=== PATIENT | male | born 1980 | race Caucasian/White ===

== ENCOUNTER 2017-08-07 18:11 | Emergency (ER) | payer OTHER ==
[~2017-08-07] VITALS: Ht 160 cm; Wt 108.9 kg
[~2017-08-07 18:11] MED LIST: BENZ100C PO; OSEL75CA PO; PRED50TA PO; PROAIR HFA8.5 GM INH; VENTOLIN HFA18 GM INH
[2017-08-07] MEDS ORDERED: PRED20TA PO (18:58)
[2017-08-07] MEDS ORDERED: DOXY100C2 PO (18:58)
--- NOTE | 2017-08-07 18:59 | PHYS DOC ---
Past Medical History Past Medical History: Asthma, Hypertension Past Surgical History: Appendectomy Alcohol Use: None Drug Use: None Adult General Chief Complaint Chief Complaint: EARACHE/EAR PAIN [place] [employer] HPI Patient is a 37 year old male presents to emergency department stating that he' s been having upper nasal congestion and headache congestion for the last 3 days. He states that he has been taken [id number] sinus medication with no relief. Patient states that his ears feel clogged he feels as though he has congestion throughout his head. He states that he feels slightly off balance due to the congestion. He denies any shortness of air difficulty breathing. He does state he has a nonproductive cough. Review of Systems Review of Systems Constitutional: Denies fever or chills [] Eyes: Denies change in visual acuity, redness, or eye pain [] HENT: nasal congestion and sore throat [] Respiratory: cough denies shortness of breath [] Cardiovascular: No additional information not addressed in HPI [] GI: Denies abdominal pain, nausea, vomiting, bloody stools or diarrhea [] : Denies dysuria or hematuria [] Musculoskeletal: Denies back pain or joint pain [] Integument: Denies rash or skin lesions [] Neurologic: Denies headache, focal weakness or sensory changes [] Endocrine: Denies polyuria or polydipsia [] Allergies Allergies Allergies Coded Allergies Type Severity Reaction Last Updated Verified No Known Drug Allergies 01/07/15 No Physical Exam Physical Exam Constitutional: Well developed, well nourished, no acute distress, non-toxic appearance. [] HENT: Normocephalic, atraumatic, bilateral external ears normal, oropharynx moist, no oral exudates, nose normal. Bilateral tympanic membranes appear to be normal. Patient with frontal sinus tenderness noted. No maxillary sinus tenderness noted. Throat with postnasal drip that yellowish in color. Redness noted in the throat no exudate or erythematous noted. No anterior cervical adenopathy noted. Eyes: PERRLA, EOMI, conjunctiva normal, no discharge. [] Neck: Normal range of motion, no tenderness, supple, no stridor. [] Cardiovascular:Heart rate regular rhythm, no murmur [] Lungs & Thorax: Bilateral breath sounds clear to auscultation [] Skin: Warm, dry, no erythema, no rash. [] Back: No tenderness Extremities: No tenderness, no cyanosis, no clubbing, ROM intact, no edema. [] Neurologic: Alert and oriented X 3, normal motor function, normal sensory function, no focal deficits noted. [] Psychologic: Affect normal, judgement normal, mood normal. [] Current Patient Data Vital Signs Vital Signs Date Time Temp Pulse Resp B/P (MAP) Pulse Ox O2 Delivery O2 Flow Rate FiO2 08/07/17 18:35 98.0 83 20 162/94 (116) 99 Room Air 98.0 EKG EKG [] Radiology/Procedures Radiology/Procedures [] Course & Med Decision Making Course & Med Decision Making Pertinent Labs and Imaging studies reviewed. (See chart for details) Patient will be discharged home with a prescription for doxycycline as well as prednisone. Recommended Sudafed and Mucinex DM [id number] instructed by kitchen hand. Recommended patient drink plenty of fluids use Tylenol or ibuprofen for pain and discomfort. Patient will be provided with a 3 day work note. Patient will be discharged home in stable condition signs symptoms to return back to emergency department as been provided. All questions and concerns been answered at patient's bedside. Patient agrees with discharge instructions treatment regimens and follow-up recommendations. [] Dragon Disclaimer Dragon Disclaimer This electronic medical record was generated, in whole or in part, using a voice recognition dictation system. Departure Departure Impression: Primary Impression: Upper respiratory infection Disposition: 01 HOME, SELF-CARE Condition: STABLE Referrals: UNKNOWN PCP NAME (PCP) Patient Instructions: Upper Respiratory Infection, Adult, [id number] Additional Instructions: Activity as tolerated. Medication as prescribed. Ibuprofen or Tylenol for pain and discomfort. Sudafed and Mucinex DM as instructed by kitchen hand [id number]. Drink plenty of fluids. Follow-up primary care physician in the next 3-5 days. Return back to emergency prior signs symptoms of become worse. Scripts Prednisone (PREDNISONE) 20 Mg Tablet 40 MG PO DAILY for 7 Days, #14 TAB Prov: FELA PARIKH DESTINATION SIGN REPAIRER 08/07/17 Doxycycline Hyclate (DOXYCYCLINE HYCLATE) 100 Mg Capsule 1 CAP PO BID, #20 CAP Prov: FELA PARIKH DESTINATION SIGN REPAIRER 08/07/17 FELA PARIKH DESTINATION SIGN REPAIRER Aug 07, 2017 18:59
[2017-08-07 19:13] VITALS: BP 148/79
== END 2017-08-07 19:13 | disposition home or self-care (01) ==
LOC: ER 18:11
DX: J06.9 Acute upper respiratory infection, unspecified (principal); R51 Headache; H93.93 Unspecified disorder of ear, bilateral; J45.909 Unspecified asthma, uncomplicated; I10 Essential (primary) hypertension
CPT/HCPCS: 99283

== ENCOUNTER 2018-06-01 22:05 | Emergency (ER) | payer OTHER | END 2018-06-01 23:26 | disposition home or self-care (01) | LOC: ER 23:26 | DX: M54.5 Low back pain (principal); J45.909 Unspecified asthma, uncomplicated; I10 Essential (primary) hypertension; Z90.49 Acquired absence of other specified parts of digestive tract | CPT/HCPCS: 99283 ==

== ENCOUNTER 2018-11-19 11:32 | Emergency (ER) | payer OTHER ==
[~2018-11-19] VITALS: Ht 160 cm; Wt 113.4 kg
[~2018-11-19 11:32] MED LIST changes: +ALBU2.5V8 INH; +CYCL5TAB PO; +DOXY100C2 PO; +PRED20TA PO; -PROAIR HFA8.5 GM INH
[2018-11-19 11:52] VITALS: BP 101/53
--- NOTE | 2018-11-19 12:36 | PHYS DOC ---
Past Medical History Past Medical History: Asthma, Hypertension Past Surgical History: Appendectomy Alcohol Use: Occasionally Drug Use: None Adult General Chief Complaint Chief Complaint: FLU SYMPTOM HPI HPI Patient is a 38 year old male who presents to the ER with complaints of a runny nose, cough, fever up to 102, body aches, and fatigue since yesterday. Pt states that he was not immunized against the flu this season. He denies any known exposure to influenza. Pt denies any abdominal pain, diarrhea, or ear pain. States that he has coughed so hard that he's vomited a few times. Review of Systems Review of Systems Constitutional:See HPI Eyes: Denies change in visual acuity, redness, or eye pain [] HENT: Denies nasal congestion or sore throat [] Respiratory: Denies wheezing or shortness of breath; see HPi Cardiovascular: No additional information not addressed in HPI [] GI: Denies abdominal pain or diarrhea [] Musculoskeletal: Denies back pain or joint pain [] Integument: Denies rash or skin lesions [] Neurologic: Denies headache, focal weakness or sensory changes [] All other systems were reviewed and found to be within normal limits, except as documented in this note. Allergies Allergies Allergies Coded Allergies Type Severity Reaction Last Updated Verified No Known Drug Allergies 01/07/15 No Physical Exam Physical Exam Constitutional: Well developed, well nourished, no acute distress, ill appearance. [] HENT: Normocephalic, atraumatic, bilateral external ears normal, bilateral TMs normal, posterior pharynx normal, oropharynx moist, no oral exudates, nose normal. [] Eyes: conjunctiva injected, no discharge. [] Neck: Normal range of motion, no tenderness, supple, no stridor. [] Cardiovascular:Heart rate regular rhythm, no murmur [] Lungs & Thorax: Bilateral breath sounds clear to auscultation [] Skin: Hot, flushed, dry, no rash. [] Extremities: No cyanosis, no clubbing, ROM intact, no edema. [] Neurologic: Alert and oriented X 3, normal motor function, normal sensory function, no focal deficits noted. [] Psychologic: Affect normal, judgement normal, mood normal. [] Current Patient Data Vital Signs Vital Signs Date Time Temp Pulse Resp B/P (MAP) Pulse Ox O2 Delivery O2 Flow Rate FiO2 11/19/18 11:52 102.1 102 20 101/53 (69) 96 Room Air 102.1 EKG EKG [] Radiology/Procedures Radiology/Procedures influenza A positive influenza B negative[] Course & Med Decision Making Course & Med Decision Making Pertinent Labs and Imaging studies reviewed. (See chart for details) [] Dragon Disclaimer Dragon Disclaimer This electronic medical record was generated, in whole or in part, using a voice recognition dictation system. Departure Departure Impression: Primary Impression: Influenza A Disposition: HOME, SELF-CARE Condition: STABLE Referrals: NO PCP (PCP) Patient Instructions: Influenza A (H1N1) Additional Instructions: Fill prescription(s) and use as directed. Tylenol or ibuprofen prn pain/fever. Increase clear fluids. Avoid triggers such as smoke, fragrance, dust, and pollen. May take OTC cough suppressants as needed. Follow-up with your primary care doctor as needed, return to the ER symptoms worsen Scripts Oseltamivir Phosphate (TAMIFLU) 75 Mg Capsule 1 CAP PO BID for 5 Days, #10 CAP Prov: XIMENA WATERS APRN 11/19/18 XIMENA WATERS INFORMATION BROKER Nov 19, 2018 12:35
[2018-11-19 12:38] LABS: INFLUENZA A PATIENT POSITIVE (NEGATIVE); INFLUENZA B PATIENT NEGATIVE (NEGATIVE)
[2018-11-19] MEDS ORDERED: OSEL75CA PO (12:40)
== END 2018-11-19 12:55 | disposition home or self-care (01) ==
LOC: ER 11:32
DX: J09.X2 Influenza due to identified novel influenza A virus with other respiratory manifestations (principal); J45.909 Unspecified asthma, uncomplicated; I10 Essential (primary) hypertension; Z90.89 Acquired absence of other organs
CPT/HCPCS: 87804; 99283

== ENCOUNTER 2018-11-22 21:59 | Emergency (ER) | payer OTHER ==
[~2018-11-22] VITALS: Ht 160 cm; Wt 136.1 kg
[2018-11-22 22:00] VITALS: BP 173/78
[2018-11-22] MEDS ORDERED: predniSONE 20 MG TABLET PO ONE (23:00)
[2018-11-22] MEDS ORDERED: ACETAMINOPHEN 500 MG TABLET PO ONE (23:00)
[2018-11-22] MEDS ORDERED: IPRATRPIUM/ALBUTEROL 0.5/2.5MG 3 ML NEBU. NEB ONE (23:00)
[2018-11-22] MEDS ORDERED: PRED50TA PO (23:50)
[2018-11-22] MEDS ORDERED: BENZ100C PO (23:50)
[2018-11-22] MEDS ORDERED: VENTOLIN HFA18 GM INH (23:50)
--- NOTE | 2018-11-22 23:50 | PHYS DOC ---
Past Medical History Past Medical History: Asthma, High Cholesterol, Hypertension Past Surgical History: Appendectomy Alcohol Use: Occasionally Drug Use: None Adult General Chief Complaint Chief Complaint: Congestion HPI HPI Patient is a 38 year old male with history of asthma, hypertension, high cholesterol, who presents today complaining of cough and shortness of breath for the last 3 days that got worse today. Patient states he was seen in the ED 3 days ago and was diagnosed with influenza A and put on Tamiflu. Patient states he has an inhaler in his vehicle but could not walk to his car from his house because this too far for him. He states he decided to come to the ED to be evaluated. Patient states he has had a fever since he was diagnosed with influenza. He states he takes Tylenol and Motrin but does not remember the last time he took either of them. He is requesting a breathing treatment. Review of Systems Review of Systems Constitutional:reports fever Eyes: Denies change in visual acuity, redness, or eye pain [] HENT: Denies nasal congestion or sore throat [] Respiratory: Reports cough and shortness of breath [] Cardiovascular: No additional information not addressed in HPI [] GI: Denies abdominal pain, nausea, vomiting, bloody stools or diarrhea [] : Denies dysuria or hematuria [] Musculoskeletal: Denies back pain or joint pain [] Integument: Denies rash or skin lesions [] Neurologic: Denies headache, focal weakness or sensory changes [] All other systems were reviewed and found to be within normal limits, except as documented in this note. Current Medications Current Medications Current Medications Medications (Trade) Dose Ordered Sig/[facility] Start Time Stop Time Status Last Admin Dose Admin Acetaminophen (Tylenol) 1,000 mg 1X ONCE 11/22/18 23:00 11/22/18 23:01 DC 11/22/18 22:58 1,000 MG Albuterol/ Ipratropium (Duoneb) 3 ml 1X ONCE 11/22/18 23:00 11/22/18 23:01 DC 11/22/18 22:45 3 ML Prednisone (Prednisone) 50 mg 1X ONCE 11/22/18 23:00 11/22/18 23:01 DC 11/22/18 22:58 50 MG Allergies Allergies Allergies Coded Allergies Type Severity Reaction Last Updated Verified No Known Drug Allergies 01/07/15 No Physical Exam Physical Exam Constitutional: Well developed, well nourished, no acute distress, non-toxic appearance. [] HENT: Normocephalic, atraumatic, bilateral external ears normal, oropharynx moist, no oral exudates, nose normal. [] Eyes: PERRLA, EOMI, conjunctiva normal, no discharge. [] Neck: Normal range of motion, no tenderness, supple, no stridor. [] Cardiovascular:Heart rate regular rhythm, no murmur [] Lungs & Thorax: Slightly diminished breath sounds to posterior lung bases. Abdomen: Bowel sounds normal, soft, no tenderness, no masses, no pulsatile masses. [] Skin: Warm, dry, no erythema, no rash. [] Back: No tenderness, no CVA tenderness. [] Extremities: No tenderness, no cyanosis, no clubbing, ROM intact, no edema. [] Neurologic: Alert and oriented X 3, normal motor function, normal sensory function, no focal deficits noted. [] Psychologic: Affect normal, judgement normal, mood normal. [] Current Patient Data Vital Signs Vital Signs Date Time Temp Pulse Resp B/P (MAP) Pulse Ox O2 Delivery O2 Flow Rate FiO2 11/22/18 22:49 100 Room Air 11/22/18 22:00 103.0 127 26 173/78 (109) 103.0 EKG EKG [] Radiology/Procedures Radiology/Procedures [] Course & Med Decision Making Course & Med Decision Making Pertinent Labs and Imaging studies reviewed. (See chart for details) This is a 38 year old male with history of asthma presenting today complaining of shortness of breath. Patient was diagnosed with influenza A, 3 days ago, currently on Tamiflu. Has had fever since then. Has an inhaler in his vehicle but decided to come to the ED to be evaluated because it was to far of a walk for for him to to to his car and get the inhaler. Patient is in no distress on arrival to the ED, he has a temperature of 103. He does not remember the last time he took his Tylenol or Motrin. He was given Tylenol 1 g in the ED. Given a DuoNeb treatment and prednisone. Lungs have cleared up and he states he is feeling better. Chest x-ray interpreted by Dr. Borges is negative for any acute findings. Patient was discharged with prednisone for 4 more days and albuterol inhaler. Encouraged to take Tylenol every 4 hours and Motrin every 6 hours. Encouraged to rest and push fluids. Encouraged to follow-up with his own PCP on Sunday. Instructed to return to the ED at any point symptoms worsen Sandra Disclaimer Sandra Disclaimer This electronic medical record was generated, in whole or in part, using a voice recognition dictation system. Departure Departure Impression: Primary Impression: Influenza A Additional Impressions: Cough Asthma exacerbation Disposition: HOME, SELF-CARE Condition: STABLE Referrals: NO PCP (PCP) Follow up with your doctor next week Patient Instructions: Asthma, Adult, Kbbs-[id number], Cough, Adult, Prdp-md-Gndb, Fever, Adult, Influenza A (H1N1) Additional Instructions: You were evaluated in the emergency room. You have influenza A. Please take Tylenol every 4 hours and Motrin every 6 hours. Rest, push fluids. Use breathing treatments as needed. Complete your prednisone. Follow up with your doctor in the course of next week. Scripts Benzonatate (TESSALON PERLE) 100 Mg Capsule 1 CAP PO TID, #30 CAP Prov: CLAUDINE ARBOLEDA APRN 11/22/18 Albuterol Sulfate (VENTOLIN HFA INHALER) 18 Gm Hfa.aer.ad 2 PUFF INH Q4HRS for FOR ASTHMA, #1 INHALER 0 Refills Prov: CLAUDIEN ARBOLEDA APRN 11/22/18 Prednisone (PREDNISONE) 50 Mg Tablet 1 TAB PO DAILY, #4 TAB Prov: CLAUDINE ARBOLEDA APRN 11/22/18 Problem Qualifiers Additional Impressions: Asthma exacerbation Asthma severity: mild Asthma persistence: intermittent Qualified Codes: J45.21 - Mild intermittent asthma with (acute) exacerbation CLAUDINE ARBOLEDA APRN Nov 22, 2018 23:50
--- NOTE | 2018-11-22 23:51 | RAD ---
CHEST PA LATERAL History: Flu like symptoms x a week Comparison: Two-view chest November 24, 2016. Findings: The cardiomediastinal silhouette is normal. Pulmonary vasculature is normal. The lungs are clear. No pleural effusion or pneumothorax is seen. There is no acute bone abnormality. There is a thin linear metallic density along the anterior neck. IMPRESSION: No acute cardiopulmonary process. Electronically signed by: Davy Will MD (11/22/2018 11:47 PM) [facility]
== END 2018-11-22 23:50 | disposition home or self-care (01) ==
LOC: ER 21:59
DX: J09.X2 Influenza due to identified novel influenza A virus with other respiratory manifestations (principal); J45.21 Mild intermittent asthma with (acute) exacerbation; E78.00 Pure hypercholesterolemia, unspecified; I10 Essential (primary) hypertension
CPT/HCPCS: 71046; 94640; 99283; J7512; J7620

== ENCOUNTER 2020-06-19 10:09 | Emergency (ER) | payer OTHER ==
[~2020-06-19] VITALS: Ht 160 cm; Wt 95.0 kg
--- NOTE | 2020-06-19 10:57 | RAD ---
AP chest. HISTORY: Cough, short of air AP view was taken of the chest. Lungs are clear. Heart is normal in size. There is no pleural effusion. IMPRESSION: 1. No acute chest disease. Electronically signed by: Davonte Cassidy MD (06/19/2020 10:54 AM) [facility]
[2020-06-19] MEDS ORDERED: ALBU2.5V8 IH (11:43)
[2020-06-19] MEDS ORDERED: AZIT250T PO (11:43)
[2020-06-19] MEDS ORDERED: PRED20TA PO (11:43)
--- NOTE | 2020-06-19 11:43 | PHYS DOC ---
Past Medical History Past Medical History: Asthma, High Cholesterol, Hypertension Past Surgical History: Appendectomy Smoking Status: Former Smoker Alcohol Use: Occasionally Drug Use: None General Adult EDM: Chief Complaint: SHORTNESS OF BREATH HPI: HPI: Patient is a 40 year old male who presented to ER today for evaluation of 2-day history of productive cough with yellow sputum, sore throat. Patient denies any fever, no trouble breathing, no chest pain, no abdominal pain, no nausea vomiting. Patient also complained of headache. Patient denies being exposed to anybody who tested positive for COVID-19. Patient has history of asthma Patient was evaluated by this physician who worn full PPE included N95 MASK, FACE SHIELD, GLOVE, GOWN. Review of Systems: Review of Systems: Constitutional: Denies fever or chills. [] Eyes: Denies change in visual acuity. [] HENT: Positive for nasal congestion or sore throat. [] Respiratory: Positive for cough or shortness of breath. [] Cardiovascular: no chest pain or edema. [] GI: Denies abdominal pain, nausea, vomiting, bloody stools or diarrhea. [] : Denies dysuria. [] Musculoskeletal: Denies back pain or joint pain. [] Integument: Denies rash. [] Neurologic: Denies headache, focal weakness or sensory changes. [] Endocrine: Denies polyuria or polydipsia. [] Lymphatic: Denies swollen glands. [] Psychiatric: Denies depression or anxiety. [] Heart Score: Risk Factors: Risk Factors: DM, Current or recent (<one month) smoker, HTN, HLP, family history of CAD, obesity. Risk Scores: Score 0 - 3: 2.5% MACE over next 6 weeks - Discharge Home Score 4 - 6: 20.3% MACE over next 6 weeks - Admit for Clinical Observation Score 7 - 10: 72.7% MACE over next 6 weeks - Early Invasive Strategies Allergies: Allergies: Allergies Coded Allergies Type Severity Reaction Last Updated Verified No Known Drug Allergies 01/07/15 No Physical Exam: PE: Constitutional: Well developed, well nourished, no acute distress, non-toxic appearance. [] HENT: Normocephalic, atraumatic, bilateral external ears normal, oropharynx moist, no oral exudates, nose normal. [] Eyes: PERRLA, EOMI, conjunctiva normal, no discharge. [] Neck: Normal range of motion, no tenderness, supple, no stridor. [] Cardiovascular:Heart rate regular rhythm, no murmur [] Lungs & Thorax: Bilateral breath sounds clear to auscultation [] Abdomen: Bowel sounds normal, soft, no tenderness, no masses, no pulsatile masses. [] Skin: Warm, dry, no erythema, no rash. [] Back: No tenderness, no CVA tenderness. [] Extremities: No tenderness, no cyanosis, no clubbing, ROM intact, no edema. [] Neurologic: Alert and oriented X 3, normal motor function, normal sensory function, no focal deficits noted. [] Psychologic: Affect normal, judgement normal, mood normal. [] Current Patient Data: Vital Signs: Vital Signs Date Time Temp Pulse Resp B/P (MAP) Pulse Ox O2 Delivery O2 Flow Rate FiO2 06/19/20 10:29 98.1 90 18 134/67 (89) 96 Room Air 98.1 EKG: EKG: [] Radiology/Procedures: Radiology/Procedures: [][facility] [address] [place] [address] IMAGING REPORT Signed PATIENT: FRANCINE SPENCER ACCOUNT: [id number] : 1980 LOCATION: ER AGE: 40 SEX: M EXAM STATUS: REG ER ORD. PHYSICIAN: ROBERT MONTE DO REASON: COUGH, SOA PROCEDURE: CHEST AP ONLY AP chest. HISTORY: Cough, short of air AP view was taken of the chest. Lungs are clear. Heart is normal in size. There is no pleural effusion. IMPRESSION: 1. No acute chest disease. Electronically signed by: Davonte Vasquez MD (06/19/2020 10:54 AM) [facility] DICTATED and SIGNED BY: DAVONTE VASQUEZ MD DATE: 06/19/20 1054 Course & Med Decision Making: Course & Med Decision Making COVID-19 CRITERIA: The patient was evaluated during the global COVID-19 pandemic, and that diagnosis was suspected/considered upon their initial presentation. Their evaluation, treatment and testing was consistent with current guidelines for patients who present with complaints or symptoms that may be related to COVID-19. Pertinent Labs and Imaging studies reviewed. (See chart for details) Patient is a 40-year-old male who was evaluated in the ER due to cough, sore throat, trouble breathing. Patient has history of asthma, suspecting COVID-19 INFECTION, COVID TEST is pending at this time. Patient is stable, in no acute distress, vital signs are normal. We will discharge him home. Dragon Disclaimer: Dragon Disclaimer: This electronic medical record was generated, in whole or in part, using a voice recognition dictation system. Departure Departure Impression: Primary Impression: Acute bronchitis Additional Impression: Suspected 2019 novel coronavirus infection Disposition: HOME, SELF-CARE Condition: STABLE Referrals: NO PCP (PCP) PLEASE FOLLOW UP WITH YOUR DOCTOR FOR REEVALUATION NEEDED Patient Instructions: Acute Bronchitis Additional Instructions: You have been tested for or diagnosed with COVID-19. It is an infection caused by a new type of coronavirus. COVID-19 will cause cold-like or mild flu symptoms in most. It can cause more severe symptoms like problems breathing in some. There is no treatment for COVID-19. The body will clear the infection over time. Self-care will help to ease discomfort. Steps to Take: Self-Care Rest as needed. Healthy habits may help you feel better. Steps include: Choose healthy foods including fruits and vegetables. Drink water throughout the day. Get plenty of sleep each night. If you smoke, try to quit. It may ease breathing. Avoid alcohol. Keep Others Healthy The virus can spread to others. Droplets are released every time you sneeze or cough. The droplets can get into the mouth, nose, or eyes of people near you and lead to infection. To lower the chances of spreading COVID-19 to others: Stay at home until your doctor has said it is safe to leave. If you tested positive this will mean staying isolated until both of the following are true: At least 7 days have passed since the start of illness. You are free of fever for at least 72 hours without the use of medicine. During this time: - Avoid public areas, events, or transportation. Do not return to work or school until your doctor has said it is safe to do so. - Call ahead if you need to go to a medical center. Let them know you may have COVID-19. It will help them guide you where to go. They may also ask you to wear a facemask when you come to the office. - If you call for emergency medical services, let them know you may have COVID- 19. While at home: - Try to avoid close contact with others. Stay about 6 feet away. - If possible, spend most of your time in a separate room from others. - Use a face mask if you will be in close contact with others such as sharing a room or vehicle. - Have someone wipe down common surfaces in the home. Use household missile inspector preflight every day on areas like doorknobs, counters, or sinks. - Cough or sneeze into a tissue. Throw the tissue away right after use. If a tissue is not available, cough or sneeze into your elbow. - Wash your hands often. Wash them after sneezing or coughing. Use soap and water and wash for at least 20 seconds. Alcohol based hand night cleaner can be used if soap and water is not available. - Do not prepare food for others. Avoid sharing personal items like forks, spoons, or toothbrushes. - Avoid close contact with pets while you are sick. There is no evidence of the virus passing to pets. This is a safety step until more is known about this virus. Isolation can be frustrating. Social interaction can help. Keep in touch with friends and family through phone and tech options. You can still interact with others in your home, just keep a safe distance of about 6 feet. Follow-up: Your doctors office will check in with you to see if there are any changes in your health. You may be asked to keep track of symptoms to share with them. They will also let you know when you are clear to be in public again. Problems to Look Out For: Contact your doctor if your recovery is not going as you expect. Get emergency care if you have problems such as: - Trouble breathing - Nonstop chest pain or pressure - Changes in awareness, confusion, or problems waking - Lips or face have bluish color - Worsening of symptoms If you think you have an emergency, call for emergency medical services right away. As taken from [facility] Scripts Albuterol Sulfate (PROAIR HFA INHALER) 8.5 Gm Hfa.aer.ad 2 PUFF IH PRN Q4-6HRS PRN for wheezing for 21 Days, #1 INHALER 0 Refills Prov: ROBERT MONTE DO 06/19/20 Prednisone (PREDNISONE) 20 Mg Tablet 1 TAB PO DAILY, #10 TAB Prov: ROBERT MONTE DO 06/19/20 Azithromycin (ZITHROMAX) 250 Mg Tablet 1 PKG PO UD, #6 TAB Prov: ROBERT MONTE DO 06/19/20 Justicifation of Admission Dx: Justifications for Admission: Justification of Admission Dx: N/A ROBERT MONTE DO Jun 19, 2020 11:43
[2020-06-19 12:22] VITALS: BP 159/85
== END 2020-06-19 12:30 | disposition home or self-care (01) ==
LOC: ER 10:09
DX: J20.9 Acute bronchitis, unspecified (principal); Z20.828 Contact with and (suspected) exposure to other viral communicable diseases; R06.02 Shortness of breath; R05 Cough; J45.909 Unspecified asthma, uncomplicated; E78.00 Pure hypercholesterolemia, unspecified; I10 Essential (primary) hypertension; Z90.89 Acquired absence of other organs; Z87.891 Personal history of nicotine dependence
CPT/HCPCS: 71045; 99284; U0003

== ENCOUNTER 2020-09-07 13:12 | Emergency (ER) | payer OTHER ==
[~2020-09-07] VITALS: Ht 160 cm; Wt 122.7 kg
[~2020-09-07 13:12] MED LIST changes: +ALBU2.5V8 IH; +AZIT250T PO
[2020-09-07] MEDS ORDERED: ALBUTEROL SULFATE 2.5 MG/3 ML NEBU. NEB ONE (15:30)
[2020-09-07] MEDS ORDERED: predniSONE 10 MG TABLET PO ONE (15:30)
--- NOTE | 2020-09-07 15:51 | PHYS DOC ---
Past Medical History Past Medical History: Asthma, High Cholesterol, Hypertension Past Surgical History: Appendectomy Smoking Status: Former Smoker Alcohol Use: None Drug Use: None General Adult EDM: Chief Complaint: MULTIPLE COMPLAINTS HPI: HPI: Patient is a 40 year old male who presents with patient states for the last 2 days he has had bilateral eye discharge with irritation. He states also 2 weeks ago he has asthma and has uses inhaler once to twice a day and it started to exacerbate so he went to the doctor and they put him on prednisone. He states he took all the prednisone and finished that a week ago. He states that he feels like he is getting short of breath again and is exacerbating again. Patient is also asking for a breathing treatment at this time. He denies any chest pain, nausea, vomiting, diarrhea, back pain, headache, dizziness, syncope, focal weakness, vision changes. Patient has a history of asthma, former smoker, appendectomy, high cholesterol, hypertension. Review of Systems: Review of Systems: Constitutional: Denies fever or chills. [] Eyes: Denies change in visual acuity. +Bilateral eye redness with discharge [] HENT: Denies nasal congestion or sore throat. [] Respiratory: Denies cough. + shortness of breath. [] Cardiovascular: Denies chest pain or edema. +Chest tightness. [] GI: Denies abdominal pain, nausea, vomiting, bloody stools or diarrhea. [] : Denies dysuria. [] Musculoskeletal: Denies back pain or joint pain. [] Integument: Denies rash. [] Neurologic: Denies headache, focal weakness or sensory changes. [] Endocrine: Denies polyuria or polydipsia. [] Lymphatic: Denies swollen glands. [] Psychiatric: Denies depression or anxiety. [] Heart Score: HEART Score for Chest Pain: HEART Score for Chest Pain Response (Comments) Value History Slighlty/Non-Suspicious 0 ECG Normal 0 Age < 45 0 Risk Factors 1 or 2 Risk Factors 1 Troponin < Normal Limit 0 Total 1 Risk Factors: Risk Factors: DM, Current or recent (<one month) smoker, HTN, HLP, family history of CAD, obesity. Risk Scores: Score 0 - 3: 2.5% MACE over next 6 weeks - Discharge Home Score 4 - 6: 20.3% MACE over next 6 weeks - Admit for Clinical Observation Score 7 - 10: 72.7% MACE over next 6 weeks - Early Invasive Strategies Current Medications: Current Medications Medications (Trade) Dose Ordered Sig/Danita Start Time Stop Time Status Last Admin Dose Admin Albuterol Sulfate (Ventolin Neb Soln) 2.5 mg 1X ONCE 09/07/20 15:30 09/07/20 15:39 DC Prednisone (Prednisone) 50 mg 1X ONCE 09/07/20 15:30 09/07/20 15:39 DC Allergies: Allergies: Allergies Coded Allergies Type Severity Reaction Last Updated Verified No Known Drug Allergies 01/07/15 No Physical Exam: PE: Constitutional: Well developed, well nourished, no acute distress, non-toxic appearance. [] HENT: Normocephalic, atraumatic, bilateral external ears normal, oropharynx moist, no oral exudates, nose normal. [] Eyes: PERRLA, EOMI, conjunctiva reddened, white/ yellow discharge. [] Neck: Normal range of motion, no tenderness, supple, no stridor. [] Cardiovascular:Heart rate regular rhythm, no murmur [] Lungs & Thorax: Bilateral upper breath sounds inspiratory, expiratory wheezing and lower diminished to auscultation [] Abdomen: Bowel sounds normal, soft, no tenderness, no masses, no pulsatile masses. [] Skin: Warm, dry, no erythema, no rash. [] Back: No tenderness, no CVA tenderness. [] Extremities: No tenderness, no cyanosis, no clubbing, ROM intact, no edema. [] Neurologic: Alert and oriented X 3, normal motor function, normal sensory function, no focal deficits noted. [] Psychologic: Affect normal, judgement normal, mood normal. [] Current Patient Data: Vital Signs: Vital Signs Date Time Temp Pulse Resp B/P (MAP) Pulse Ox O2 Delivery O2 Flow Rate FiO2 09/07/20 14:35 98.6 97 20 170/77 (108) 96 Room Air 98.6 EKG: EK and read by Dr Castro as Sinus Rhythm and no STEMI[] Radiology/Procedures: Radiology/Procedures: [] Impression: [facility] [address] [place] [address] IMAGING REPORT Signed PATIENT: FRANCINE SPENCER ACCOUNT: [id number] : 1980 LOCATION: ER AGE: 40 SEX: M EXAM STATUS: REG ER ORD. PHYSICIAN: FELA RAMÍREZ APRN REASON: SOA PROCEDURE: CHEST PA & LATERAL CHEST PA LATERAL History: Shortness of air Comparison: June 19, 2020 Findings: 2 views of the chest are submitted. There is no infiltrate, pneumothorax, or effusion. Pericardial cardiac silhouette is within normal limits in size. Impression: 1. There is no radiographic evidence of acute cardiopulmonary disease. Electronically signed by: Camila Varner MD (09/07/2020 4:22 PM) [facility] DICTATED and SIGNED BY: CAMILA VARNER MD DATE: 09/07/201621 Course & Med Decision Making: Course & Med Decision Making Pertinent Labs and Imaging studies reviewed. (See chart for details) See HPI. Patient has inspiratory expiratory wheezes in upper lobes and diminished in lower lobes. Speaks in full clear sentences. 96% on room air. Ambulatory to steady gait. Bilateral sclera are pink with white discharge. Skin [place] warm and dry. No extremity edema. Blood work unremarkable. Patient states that he is breathing easier. His lungs are clear after breathing treatment. Patient states he does have a nebulizer at home that he does 3 times a day. I told him to increase that to 4 times a day since he is having exacerbation. I will put him on another round of steroid. Patient is to follow-up with his primary care provider soon as possible. We also talked about [id number] allergy medicines. EKG is sinus rhythm. Patient continues to speak in full clear sentences. He is in no respiratory distress. Patient is 96% on room air. [] Dragon Disclaimer: Dragon Disclaimer: This electronic medical record was generated, in whole or in part, using a voice recognition dictation system. Departure Departure Impression: Primary Impression: Asthma exacerbation Qualified Codes: J45.21 - Mild intermittent asthma with (acute) exacerbation Additional Impression: Conjunctivitis Qualified Codes: H10.33 - Unspecified acute conjunctivitis, bilateral Disposition: 01 DC HOME SELF CARE/HOMELESS Condition: STABLE Referrals: UNKNOWN PCP NAME (PCP) Patient Instructions: Asthma Attacks, Prevention, Asthma, Adult, Conjunctivitis (Viral and Bacterial) Additional Instructions: Follow-up with primary care provider soon as possible. Start using your nebulizer every 6 hours and use over inhaler in between for rescue. He becomes very short of breath return to the emergency room. Use medications as prescribed. Scripts Neomycin/Polymyxin B Sulf/Hc (ISYSPOGK-RPDF-SO EYE DROPS) 7.5 Ml Drops.susp 1 DROP OS QID for 5 Days, #1 BOTTLE 0 Refills Prov: BAFFELA LARA [employer] 09/07/20 Albuterol Sulfate (ALBUTEROL SULFATE NEB SOLN) 2.5 Mg/3 Ml Vial.neb 1 VIAL NEB PRN Q4HRS, #50 VIAL Prov: BAFUSESTEBANA Keyshawn [employer] 20 Albuterol Sulfate (PROAIR HFA INHALER) 8.5 Gm Hfa.aer.ad 1 PUFF INH PRN Q6HRS PRN for SHORTNESS OF BREATH, #1 INHALER 0 Refills Prov: BAFESTEBAN LARAA M [employer] 09/07/20 Methylprednisolone (MEDROL) 4 Mg Tab.ds.pk 1 PKG PO UD, #1 PKG Prov: BAFUSFELA [employer] 20 BAFESTEBAN LARAA Keyshawn [employer] Sep 07, 2020 15:51
--- NOTE | 2020-09-07 16:24 | RAD ---
CHEST PA LATERAL History: Shortness of air Comparison: June 19, 2020 Findings: 2 views of the chest are submitted. There is no infiltrate, pneumothorax, or effusion. Pericardial cardiac silhouette is within normal limits in size. Impression: 1. There is no radiographic evidence of acute cardiopulmonary disease. Electronically signed by: Deejay Lemus MD (09/07/2020 4:22 PM) [facility]
--- NOTE | 2020-09-07 16:39 | EKG ---
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
[2020-09-07 16:49] LABS: BASO # 0.1 x10^3/uL (0.0-0.2); BASO % 1 % (0-3); EOS # 0.6 x10^3/uL (0.0-0.7); EOS % 6 % (0-3); HEMATOCRIT 40.2 % (39.0-53.0); HEMOGLOBIN 13.6 g/dL (13.0-17.5); LYMPH # 2.7 x10^3/uL (1.0-4.8); LYMPH % 28 % (24-48); MEAN CORPUSCULAR HEMOGLOBIN 30 pg (25-35); MEAN CORPUSCULAR HGB CONC 34 g/dL (31-37); MEAN CORPUSCULAR VOLUME 88 fL (79-100); MONO # 0.7 x10^3/uL (0.0-1.1); MONO % 8 % (0-9); NEUT # 5.6 x10^3/uL (1.8-7.7); NEUT % 58 % (31-73); PLATELET COUNT 284 x10^3/uL (140-400); RED BLOOD COUNT 4.59 x10^6/uL (4.30-5.70); WHITE BLOOD COUNT 9.7 x10^3/uL (4.0-11.0)
[2020-09-07 17:12] LABS: CALCIUM 8.7 mg/dL (8.5-10.1); GFR 83.2; POTASSIUM 3.9 mmol/L (3.5-5.1)
[2020-09-07 17:14] LABS: ALBUMIN 3.6 g/dL (3.4-5.0); ALBUMIN/GLOBULIN RATIO 0.9 (1.0-1.7); TOTAL BILIRUBIN 0.3 mg/dL (0.2-1.0); TOTAL PROTEIN 7.4 g/dL (6.4-8.2)
[2020-09-07] MEDS ORDERED: ALBU2.5V5 NEB (17:29)
[2020-09-07] MEDS ORDERED: ALBU2.5V8 INH (17:29)
[2020-09-07] MEDS ORDERED: METH4TAB2 PO (17:29)
[2020-09-07 17:40] VITALS: BP 151/73
[2020-09-07] MEDS ORDERED: NEOM7.5D4 OS (17:41)
== END 2020-09-07 17:45 | disposition home or self-care (01) ==
LOC: ER 13:12
DX: H10.33 Unspecified acute conjunctivitis, bilateral (principal); J45.21 Mild intermittent asthma with (acute) exacerbation; E78.00 Pure hypercholesterolemia, unspecified; I10 Essential (primary) hypertension; Z87.891 Personal history of nicotine dependence
CPT/HCPCS: 36415; 71046; 80053; 84484; 85025; 85379; 93005; 94640; 99285; J7512; J7613

== ENCOUNTER 2021-05-09 16:07 | Observation (INO) | payer OTHER ==
[~2021-05-09] VITALS: Ht 160 cm; Wt 125.7 kg
[~2021-05-09 16:07] MED LIST changes: +ALBU2.5V5 NEB; +ASPI325T11 PO; +ATOR40TA59 PO; +BUDE10.2 IH; +CLOP75TA PO; +HYDR12.59 PO; +LISI-130 PO; +METH4TAB2 PO; +METO50TA6 PO; +NEOM7.5D4 OS
--- NOTE | 2021-05-09 17:06 | EKG ---
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
--- NOTE | 2021-05-09 17:54 | ED.ADGEN ---
Past Medical History Past Medical History: Asthma, High Cholesterol, Hypertension Past Surgical History: Appendectomy, Cholecystectomy Smoking Status: Never Smoker Alcohol Use: None Drug Use: None General Adult EDM: Chief Complaint: CHEST PAIN HPI: HPI: Patient is a 40-year-old male with past medical history of coronary artery disease and congestive heart failure presents to the emergency room planing of chest pain. Patient had a stent placed last . He states that he was doing well at home until earlier today. He states he was at the store when he felt this substernal chest pressure. It lasts a few minutes before going away but it keeps recurring. He has associated shortness of breath and had some nausea. He has had pain like this previously. He has been taking all his medi cations. Review of Systems: Review of Systems: Complete ROS is negative unless otherwise documented in HPI Current Medications: Current Medications Medications (Trade) Dose Ordered Sig/Danita Start Time Stop Time Status Last Admin Dose Admin Aspirin (Aspirin Chewable) 324 mg 1X ONCE 05/09/21 18:00 05/09/21 18:01 DC 05/09/21 18:14 324 MG Morphine Sulfate (Morphine Sulfate) 5 mg 1X ONCE 05/09/21 18:00 05/09/21 18:01 DC 05/09/21 18:14 5 MG Allergies: Allergies: Allergies Coded Allergies Type Severity Reaction Last Updated Verified No Known Drug Allergies 05/05/21 No Physical Exam: PE: General: Awake, alert, NAD. Well Nourished, well hydrated. Cooperative HEENT: Atraumatic, EOMI, PERRL, airway patent, moist oral mucosa Neck: Supple, trachea midline Respiratory: CTA bilaterally, normal effort, no wheezing/crackles CV: RRR, no murmur, cap refill <2 GI: Soft, nondistended, nontender, no masses MSK: No obvious deformities Skin: Warm, dry, intact Neuro: A&O x3, speech NL, sensory and motor grossly intact, no focal deficits Psych: Normal affect, normal mood, not suicidal or homicidal Current Patient Data: Labs: Laboratory Tests Test 05/09/21 18:00 White Blood Count 11.9 x10^3/uL (4.0-11.0) H Red Blood Count 4.85 x10^6/uL (4.30-5.70) Hemoglobin 14.4 g/dL (13.0-17.5) Hematocrit 42.6 % (39.0-53.0) Mean Corpuscular Volume 88 fL (79-100) Mean Corpuscular Hemoglobin 30 pg (25-35) Mean Corpuscular Hemoglobin Concent 34 g/dL (31-37) Red Cell Distribution Width 13.4 % (11.5-14.5) Platelet Count 307 x10^3/uL (140-400) Neutrophils (%) (Auto) 70 % (31-73) Lymphocytes (%) (Auto) 20 % (24-48) L Monocytes (%) (Auto) 7 % (0-9) Eosinophils (%) (Auto) 3 % (0-3) Basophils (%) (Auto) 1 % (0-3) Neutrophils # (Auto) 8.3 x10^3/uL (1.8-7.7) H Lymphocytes # (Auto) 2.3 x10^3/uL (1.0-4.8) Monocytes # (Auto) 0.8 x10^3/uL (0.0-1.1) Eosinophils # (Auto) 0.3 x10^3/uL (0.0-0.7) Basophils # (Auto) 0.1 x10^3/uL (0.0-0.2) Sodium Level 139 mmol/L (136-145) Potassium Level 4.7 mmol/L (3.5-5.1) Chloride Level 102 mmol/L (98-107) Carbon Dioxide Level 29 mmol/L (21-32) Anion Gap 8 (6-14) Blood Urea Nitrogen 21 mg/dL (8-26) Creatinine 1.2 mg/dL (0.7-1.3) Estimated GFR (Cockcroft-Gault) 67.4 Glucose Level 94 mg/dL (70-99) Calcium Level 8.9 mg/dL (8.5-10.1) Troponin I Quantitative < 0.017 ng/mL (0.000-0.055) Laboratory Tests 05/09/21 18:00 Laboratory Tests 05/09/21 18:00 Vital Signs: Vital Signs Date Time Temp Pulse Resp B/P (MAP) Pulse Ox O2 Delivery O2 Flow Rate FiO2 05/09/21 18:14 20 97 Room Air 05/09/21 16:20 98.0 85 118/52 (74) 98.0 EKG: EKG: [] Heart Score: C/O Chest Pain: Yes HEART Score for Chest Pain: HEART Score for Chest Pain Response (Comments) Value History Moderately Suspicious 1 ECG Nonspecific Repolarizatio 1 Age < 45 0 Risk Factors >3 Risk Factors or Hx CAD 2 Total 4 Risk Factors: Risk Factors: DM, Current or recent (<one month) smoker, HTN, HLP, family history of CAD, obesity. Risk Scores: Score 0 - 3: 2.5% MACE over next 6 weeks - Discharge Home Score 4 - 6: 20.3% MACE over next 6 weeks - Admit for Clinical Observation Score 7 - 10: 72.7% MACE over next 6 weeks - Early Invasive Strategies Radiology/Procedures: Radiology/Procedures: [] Impression: XR CHEST 2V History: Reason: chest pain / Spl. Instructions: / History: Comparison: May 05, 2021 Findings: No consolidation or pleural effusion. Normal heart size. No pneumothorax. Impression: 1. No acute cardiopulmonary process. Course & Med Decision Making: Course & Med Decision Making Pertinent Labs and Imaging studies reviewed. (See chart for details) Patient is a 40 year-old male who presents to the Emergency Room complaining of chest pain and associated shortness of breath and nausea. History is significant for recent stent placement. At this time, given patient's risk factors and story there is concern for possible cardiac pathology. EKG was ordered and shows chronic changes. At this time there is no signs of STEMI, pericarditis, or unstable arrthymia on EKG. Patient has received aspirin today. CBC, BMP, troponin, CXR were ordered to evaluate for causes of chest pain including ACS, anemia, electrolyte abnormalities that can lead to arrhythmias, PTX, pneumonia, pneumomediastinum. Patient does not have any abdominal tenderness that would suggest pancreaititis or cholecystitis and does not need an abdominal work up at this time. Patient's HEART score is 4 placing the patient at moderate risk. Assumed care at shift change disposition pending labs and radiologic imaging. Results reviewed. Patient without an elevated troponin. Patient states past pain has improved. Patient was admitted to the hospital last week--he underwent a cardiac cath with a stent placed in his LAD. Patient will be admitted to the hospital for serial cardiac markers. Sandra Disclaimer: Sandra Disclaimer: This electronic medical record was generated, in whole or in part, using a voice recognition dictation system. Departure Departure Impression: Primary Impression: Chest pain Disposition: ADMITTED INPATIENT Admitting Physician: ZACHARY Referrals: UNKNOWN PCP NAME (PCP) TONA RHODES MD May 09, 2021 17:54 ANANYA PERKINS DO May 09, 2021 18:26
[2021-05-09] MEDS ORDERED: ASPIRIN CHEWABLE 81 MG TABLET. PO ONE (18:00)
[2021-05-09] MEDS ORDERED: MORPHINE SULFATE 10 MG/ML VIAL. IV ONE (18:00)
--- NOTE | 2021-05-09 18:06 | RAD ---
XR CHEST 2V History: Reason: chest pain / Spl. Instructions: / History: Comparison: May 05, 2021 Findings: No consolidation or pleural effusion. Normal heart size. No pneumothorax. Impression: 1. No acute cardiopulmonary process. Electronically signed by: Dionicio Burns DO (05/09/2021 6:04 PM) [facility]
[2021-05-09 18:14] LABS: BASO # 0.1 x10^3/uL (0.0-0.2); BASO % 1 % (0-3); EOS # 0.3 x10^3/uL (0.0-0.7); EOS % 3 % (0-3); HEMATOCRIT 42.6 % (39.0-53.0); HEMOGLOBIN 14.4 g/dL (13.0-17.5); LYMPH # 2.3 x10^3/uL (1.0-4.8); LYMPH % 20 % (24-48); MEAN CORPUSCULAR HEMOGLOBIN 30 pg (25-35); MEAN CORPUSCULAR HGB CONC 34 g/dL (31-37); MEAN CORPUSCULAR VOLUME 88 fL (79-100); MONO # 0.8 x10^3/uL (0.0-1.1); MONO % 7 % (0-9); NEUT # 8.3 x10^3/uL (1.8-7.7); NEUT % 70 % (31-73); PLATELET COUNT 307 x10^3/uL (140-400); RED BLOOD COUNT 4.85 x10^6/uL (4.30-5.70); RED CELL DISTRIBUTION WIDTH 13.4 % (11.5-14.5); WHITE BLOOD COUNT 11.9 x10^3/uL (4.0-11.0)
[2021-05-09 18:22] LABS: CALCIUM 8.9 mg/dL (8.5-10.1); CREATININE 1.2 mg/dL (0.7-1.3); GFR 67.4; POTASSIUM 4.7 mmol/L (3.5-5.1)
[2021-05-09] MEDS ORDERED: MORPHINE SULFATE 4 MG/ML VIAL. IV PRN (19:00)
[2021-05-09] MEDS ORDERED: ONDANSETRON PF 4 MG/2 ML VIAL. IV PRN ×2 (19:00→21:00)
[2021-05-09 19:40] VITALS: BP 122/55
[2021-05-09] MEDS ORDERED: ALBU2.5V8 IH ×2 (19:55→20:49)
[2021-05-09] MEDS ORDERED: BISM262T9 PO (19:57)
--- NOTE | 2021-05-09 20:00 | NUR ---
The patient, FRANCINE SPENCER, 40 y/o, M admitted by YESSENIA BRAR MD, was given written information regarding hospital policies, unit procedures and contact persons. COMPLETED ADMISSION AND ASSESSMENT. Valuables were checked and DOCUMENTED IN EMAR. LCRN
[2021-05-09] MEDS ORDERED: NITROGLYCERIN SUBLINGUAL 0.4 MG BOTTLE OF 25. SL PRN (20:45)
[2021-05-09] MEDS ORDERED: ATORVASTATIN CALCIUM 40 MG TABLET. PO SCH (21:00)
[2021-05-09] MEDS ORDERED: MAGNESIUM HYDROXIDE 2,400 MG/30 ML ORAL.SUSP. PO PRN (21:00)
[2021-05-09] MEDS ORDERED: ACETAMINOPHEN 325 MG TABLET. PO PRN (21:00)
[2021-05-09] MEDS ORDERED: METOPROLOL TART IMMED RELEASE 50 MG TABLET. PO SCH (21:00)
[2021-05-09] MEDS ORDERED: BISMUTH SUBSALICYLATE 262 MG/15 ML ORAL.SUSP 236ML BOTTLE. PO PRN (21:00)
[2021-05-09] MEDS ORDERED: MAG HYDROX/ALUMINUM HYD/SIMETH 30 ML ORAL.SUSP PO PRN (21:00)
[2021-05-09] MEDS ORDERED: BISACODYL 10 MG SUPP.RECT. PR PRN (21:00)
[2021-05-09] MEDS ORDERED: CALCIUM CARBONATE 500 MG TAB.CHEW PO PRN (21:00)
[2021-05-09] MEDS ORDERED: ZOLPIDEM 5 MG TABLET. PO PRN (21:00)
[2021-05-09] MEDS: HEPARIN for SUB-Q USE 5,000 UNIT/ML VIAL. SQ SCH (21:52)
--- NOTE | 2021-05-09 22:00 | NUR ---
SLEEP APNEA. PT STATES "HE HAS SLEEP APNEA. HE OBTAINED A CPAP OFF [employer]. USED FOR AWHILE UNTIL IT BROKE. STATES HE HAS HAD A SLEEP STUDY BUT DIDNT FOLLOW THROUGH WITH A DOCTOR. 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 LCRN
[2021-05-09 23:01] VITALS: BP 123/51
[2021-05-10 02:07] VITALS: BP 117/51
[2021-05-10] MEDS: HEPARIN for SUB-Q USE 5,000 UNIT/ML VIAL. SQ SCH ×2 (06:29→14:00)
[2021-05-10 07:00] VITALS: BP 102/39
--- NOTE | 2021-05-10 07:23 | PDOC1 ---
History and Physical Date of Admission Date of Admission DATE: 05/10/21 TIME: 07:16 Identification/Chief Complaint Chief Complaint Chest pain Source Source: Patient History of Present Illness History of Present Illness Mr Jeter is a 40 yo male w/ PMHx HTN, HLD and recent CAD with LAD stenting coming to ED c/o chest pain and dizziness. During laughter got dizzy for about 6 sec. Also having dull achy mid chest pain lasting about 30 minutes then faded away. No associated SOA, palpitations, diaphoresis. No nausea or vomiting. Has been compliant with his medications. 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 EKG unchanged. Chest radiograph with no acute findings Labs with WBC 11.9, Hb 14.4, platelets 307, NA 139, K4.7, BUN 21, CR 1.2, glucose 94, troponin 0. BP 102/39. Admitted for further observation Past Medical History Cardiovascular: HTN, Hyperlipidemia Pulmonary: Asthma Renal/: No pertinent hx Endocrine: Diabetes Past Surgical History Past Surgical History: Appendectomy Family History Family History: Coronary Artery Disease, High Cholestrol, Hypertension Social History Smoke: No ALCOHOL: occassional Drugs: None Current Problem List Problem List Problems Medical Problems: (1) Chest pain Status: Acute Current Medications Current Medications Current Medications Aspirin (Aspirin Chewable) 324 mg 1X ONCE PO Last administered on 05/09/21at 18:14; Start 05/09/21 at 18:00; Stop 05/09/21 at 18:01; Status DC Morphine Sulfate (Morphine Sulfate) 5 mg 1X ONCE IV Last administered on 05/09/21at 18:14; Start 05/09/21 at 18:00; Stop 05/09/21 at 18:01; Status DC Ondansetron HCl (Zofran) 4 mg PRN Q8HRS PRN IV NAUSEA/VOMITING; Start 05/09/21 at 19:00; Stop 05/09/21 at 20:49; Status DC Morphine Sulfate (Morphine Sulfate) 4 mg PRN Q2HR PRN IV PAIN; Start 05/09/21 at 19:00; Stop 05/10/21 at 18:59 Nitroglycerin (Nitrostat) 0.4 mg PRN Q5MIN PRN SL CHEST PAIN; Start 05/09/21 at 20:45 Ondansetron HCl (Zofran) 4 mg PRN Q6HRS PRN IV NAUSEA/VOMITING 1ST CHOICE; Start 05/09/21 at 21:00 Aspirin (Ecotrin) 325 mg DAILYWBKFT PO ; Start 05/10/21 at 08:00 Atorvastatin Calcium (Lipitor) 40 mg QHS PO Last administered on 05/09/21at 21:49; Start 05/09/21 at 21:00 Clopidogrel Bisulfate (Plavix) 75 mg DAILYWBKFT PO ; Start 05/10/21 at 08:00 Hydrochlorothiazide (Microzide) 12.5 mg DAILY PO ; Start 05/10/21 at 09:00 Lisinopril (Prinivil) 40 mg DAILY PO ; Start 05/10/21 at 09:00 Metoprolol Tartrate (Lopressor) 50 mg BID PO Last administered on 05/09/21at 21:49; Start 05/09/21 at 21:00 Bismuth Subsalicylate (Pepto-Bismol) 262 mg PRN Q6HRS PRN PO DIARRHEA; Start 05/09/21 at 21:00 Budesonide (Pulmicort) 0.5 mg RTBID NEB ; Start 05/10/21 at 08:00 Al Hydroxide/Mg Hydroxide (Mylanta Plus Xs) 30 ml PRN Q3HRS PRN PO HEARTBURN / GAS; Start 05/09/21 at 21:00 Calcium Carbonate/ Glycine (Tums) 500 mg PRN Q3HRS PRN PO UPSET STOMACH; Start 05/09/21 at 21:00 Zolpidem Tartrate (Ambien) 5 mg PRN QHS PRN PO INSOMNIA, MAY REPEAT IN 1HR; Start 05/09/21 at 21:00 Acetaminophen (Tylenol) 650 mg PRN Q6HRS PRN PO Headaches, Temp > 101.5F; Start 05/09/21 at 21:00 Magnesium Hydroxide (Milk Of Magnesia) 2,400 mg PRN Q12HR PRN PO CONSTIPATION; Start 05/09/21 at 21:00 Bisacodyl (Dulcolax Supp) 10 mg PRN DAILY PRN OR CONSTIPATION 2ND CHOICE; Start 05/09/21 at 21:00 Heparin Sodium (Porcine) (Heparin Sodium) 5,000 unit Q8HRS SQ Last administered on 05/10/21at 06:29; Start 05/09/21 at 22:00 Albuterol Sulfate (Ventolin Neb Soln) 2.5 mg RTQID NEB ; Start 05/10/21 at 08:00 Active Scripts Active Clopidogrel (Clopidogrel Bisulfate) 75 Mg Tablet 75 Mg PO DAILYWBKFT 30 Days Atorvastatin Calcium 40 Mg Tablet 40 Mg PO QHS 30 Days Aspirin Ec (Aspirin) 325 Mg Tablet.dr 325 Mg PO DAILYWBKFT 30 Days Metoprolol Tartrate 50 Mg Tablet 50 Mg PO BID 30 Days Hydrochlorothiazide 12.5 Mg Capsule 12.5 Mg PO DAILY 30 Days Lisinopril 40 Mg Tablet 40 Mg PO DAILY 30 Days Reported Proair Hfa Inhaler (Albuterol Sulfate) 8.5 Gm Hfa.aer.ad 2 Puff IH PRN Q4-6HRS PRN 21 Days Pepto-Bismol (Bismuth Subsalicylate) 262 Mg Tab.chew 262 Mg PO PRN Q6HRS PRN Proair Hfa Inhaler (Albuterol Sulfate) 8.5 Gm Hfa.aer.ad 2 Puff IH PRN Q4-6HRS PRN 21 Days Symbicort 160-4.5 Mcg Inhaler (Budesonide/Formoterol Fumarate) 10.2 Gm Hfa.aer.ad 2 Puff IH BID Allergies Allergies: Coded Allergies: No Known Drug Allergies (Unverified , 05/05/21) ROS General: No: Chills, Night Sweats, Fatigue, Malaise, Appetite, Other PSYCHOLOGICAL ROS: No: Anxiety, Behavioral Disorder, Concentration difficultie, Decreased libido, Depression, Disorientation, Hallucinations, Hostility, Irritablity, Memory difficulties, Mood Swings, Obsessive thoughts, Physical abuse, Sexual abuse, Sleep disturbances, Suicidal ideation, Other Eyes: No Blurry vision, No Decreased vision, No Double vision, No Dry eyes, No Excessive tearing, No Eye Pain, No Itchy Eyes, No Loss of vision, No Photophobia, No Scotomata, No Uses contacts, No Uses glasses, No Other HEENT: No: Heacaches, Visual Changes, Hearing change, Nasal congestion, Nasal discharge, Oral lesions, Sinus pain, Sore Throat, Epistaxis, Sneezing, Snoring, Tinnitus, Vertigo, Vocal changes, Other ALLERGY AND IMMUNOLOGY: No: Hives, Insect Bite Sensitivity, Itchy/Watery Eyes, Nasal Congestion, Post Nasal Drip, Seasonal Allergies, Other Hematological and Lymphatic: No: Bleeding Problems, Blood Clots, Blood Transfusions, Brusing, Night Sweats, Pallor, Swollen Lymph Nodes, Other ENDOCRINE: No: Breast Changes, Galactorrhea, Hair Pattern Changes, Hot Flashes, Malaise/lethargy, Mood Swings, Palpitations, Polydipsia/polyuria, Skin Changes, Temperature Intolerance, Unexpected Weight Changes, Other Breast: No New/Changing Breast Lumps, No Nipple changes, No Nipple discharge, No Other Respiratory: No: Cough, Hemoptysis, Orthopnea, Pleuritic Pain, Shortness of breath, SOB with excertion, Sputum Changes, Stridor, Tachypnea, Wheezing, Other Cardiovascular: yes Chest Pain; No Palpitations, No Orthopnea, No Paroxysmal Noc. Dyspnea, No Edema, No Lt Headedness, No Other Gastrointestinal: No Nausea, No Vomiting, No Abdominal Pain, No Diarrhea, No Constipation, No Melena, No Hematochezia, No Other Genitourinary: No Dysuria, No Frequency, No Incontinence, No Hematuria, No Retention, No Discharge, No Urgency, No Pain, No Flank Pain, No Other, No , No , No , No , No , No , No Musculoskeletal: No Gait Disturbance, No Joint Pain, No Joint Stiffness, No Joint Swelling, No Muscle Pain, No Muscular Weakness, No Pain In:, No Swelling In:, No Other Neurological: No Behavorial Changes, No Bowel/Bladder ControlChng, No Confusion, No Dizziness, No Gait Disturbance, No Headaches, No Impaired Coord/ba josé miguel, No Memory Loss, No Numbness/Tingling, No Seizures, No Speech Problems, No Tremors, No Visual Changes, No Weakness, No Other Skin: No Dry Skin, No Eczema, No Hair Changes, No Lumps, No Mole Changes, No Mottling, No Nail Changes, No Pruritus, No Rash, No Skin Lesion Changes, No Other, No Acne Physical Exam General: Alert, Oriented X3, Cooperative, No acute distress HEENT: Atraumatic, PERRLA, EOMI, Mucous membr. moist/pink Lungs: Clear to auscultation, Normal air movement Heart: S1S2, RRR, no thrills, no rubs, no gallops, no murmurs Abdomen: Normal bowel sounds, Soft, No tenderness, No hepatosplenomegaly, No masses Rectal Exam: not examined Skin: No rashes, No breakdown, No significant lesion Neuro: Normal gait, Normal speech, Strength at 5/5 X4 ext, Normal tone, Sensation intact, Cranial nerves 3-12 NL, Reflexes 2+ Psych/Mental Status: Mental status NL, Mood NL Vitals Vitals Vital Signs Date Time Temp Pulse Resp B/P (MAP) Pulse Ox O2 Delivery O2 Flow Rate FiO2 05/10/21 02:07 97.6 61 18 117/51 (73) 97 Room Air 97.6 Labs Labs Laboratory Tests Test 05/09/21 18:00 05/09/21 21:30 05/09/21 21:31 05/10/21 00:10 White Blood Count 11.9 x10^3/uL (4.0-11.0) Red Blood Count 4.85 x10^6/uL (4.30-5.70) Hemoglobin 14.4 g/dL (13.0-17.5) Hematocrit 42.6 % (39.0-53.0) Mean Corpuscular Volume 88 fL (79-100) Mean Corpuscular Hemoglobin 30 pg (25-35) Mean Corpuscular Hemoglobin Concent 34 g/dL (31-37) Red Cell Distribution Width 13.4 % (11.5-14.5) Platelet Count 307 x10^3/uL (140-400) Neutrophils (%) (Auto) 70 % (31-73) Lymphocytes (%) (Auto) 20 % (24-48) Monocytes (%) (Auto) 7 % (0-9) Eosinophils (%) (Auto) 3 % (0-3) Basophils (%) (Auto) 1 % (0-3) Neutrophils # (Auto) 8.3 x10^3/uL (1.8-7.7) Lymphocytes # (Auto) 2.3 x10^3/uL (1.0-4.8) Monocytes # (Auto) 0.8 x10^3/uL (0.0-1.1) Eosinophils # (Auto) 0.3 x10^3/uL (0.0-0.7) Basophils # (Auto) 0.1 x10^3/uL (0.0-0.2) Sodium Level 139 mmol/L (136-145) Potassium Level 4.7 mmol/L (3.5-5.1) Chloride Level 102 mmol/L (98-107) Carbon Dioxide Level 29 mmol/L (21-32) Anion Gap 8 (6-14) Blood Urea Nitrogen 21 mg/dL (8-26) Creatinine 1.2 mg/dL (0.7-1.3) Estimated GFR (Cockcroft-Gault) 67.4 Glucose Level 94 mg/dL (70-99) Calcium Level 8.9 mg/dL (8.5-10.1) Troponin I Quantitative < 0.017 ng/mL (0.000-0.055) < 0.017 ng/mL (0.000-0.055) < 0.017 ng/mL (0.000-0.055) Glucose (Fingerstick) 142 mg/dL (70-99) Laboratory Tests Test 05/09/21 18:00 05/09/21 21:30 05/09/21 21:31 05/10/21 00:10 White Blood Count 11.9 x10^3/uL (4.0-11.0) Red Blood Count 4.85 x10^6/uL (4.30-5.70) Hemoglobin 14.4 g/dL (13.0-17.5) Hematocrit 42.6 % (39.0-53.0) Mean Corpuscular Volume 88 fL (79-100) Mean Corpuscular Hemoglobin 30 pg (25-35) Mean Corpuscular Hemoglobin Concent 34 g/dL (31-37) Red Cell Distribution Width 13.4 % (11.5-14.5) Platelet Count 307 x10^3/uL (140-400) Neutrophils (%) (Auto) 70 % (31-73) Lymphocytes (%) (Auto) 20 % (24-48) Monocytes (%) (Auto) 7 % (0-9) Eosinophils (%) (Auto) 3 % (0-3) Basophils (%) (Auto) 1 % (0-3) Neutrophils # (Auto) 8.3 x10^3/uL (1.8-7.7) Lymphocytes # (Auto) 2.3 x10^3/uL (1.0-4.8) Monocytes # (Auto) 0.8 x10^3/uL (0.0-1.1) Eosinophils # (Auto) 0.3 x10^3/uL (0.0-0.7) Basophils # (Auto) 0.1 x10^3/uL (0.0-0.2) Sodium Level 139 mmol/L (136-145) Potassium Level 4.7 mmol/L (3.5-5.1) Chloride Level 102 mmol/L (98-107) Carbon Dioxide Level 29 mmol/L (21-32) Anion Gap 8 (6-14) Blood Urea Nitrogen 21 mg/dL (8-26) Creatinine 1.2 mg/dL (0.7-1.3) Estimated GFR (Cockcroft-Gault) 67.4 Glucose Level 94 mg/dL (70-99) Calcium Level 8.9 mg/dL (8.5-10.1) Troponin I Quantitative < 0.017 ng/mL (0.000-0.055) < 0.017 ng/mL (0.000-0.055) < 0.017 ng/mL (0.000-0.055) Glucose (Fingerstick) 142 mg/dL (70-99) Images Images Chest radiograph: No consolidation or pleural effusion. Normal heart size. No pneumothorax. Impression: 1. No acute cardiopulmonary process. VTE Prophylaxis Ordered VTE Prophylaxis Devices: Yes VTE Pharmacological Prophylaxi: Yes Assessment/Plan Assessment/Plan A/P: Chest pain - likely angina, negative troponins. Will give NTG, cont asa, plavix. Cardiology consulted. Dizziness -likely symptomatic hypotension. Will reduce lisinopril and metoprolol dosing to 20 mg and 25 mg respectively. Stop HCTZ. CAD - 05/06/2021 VICK to LAD for subtotal occlusion, 25% occlusive disease in left circumflex noted. Dyspnea with acute on chronic probable diastolic CHF and AE asthma Hypertension - reduce meds Hyperlipidemia - statin Diabetes, II - sliding scale, home meds Obesity, probable FELICIANO FEN - Cardiac ada diet PPX - ambulatory FULL CODE Dispo - observation Justifications for Admission Other Justification acute chf SHELLEY DE JESUS MD May 10, 2021 07:23
[2021-05-10] MEDS: ALBUTEROL SULFATE 2.5 MG/3 ML NEBU. NEB SCH ×2 (07:40→11:21)
[2021-05-10] MEDS ORDERED: CLOPIDOGREL BISULFATE 75 MG TABLET PO SCH (08:00)
[2021-05-10] MEDS ORDERED: BUDESONIDE 0.5 MG/2 ML NEBU. NEB SCH (08:00)
[2021-05-10] MEDS ORDERED: ASPIRIN ENTERIC COATED 325 MG TABLET.DR. PO SCH (08:00)
[2021-05-10 08:59] VITALS: BP 97/39
[2021-05-10] MEDS ORDERED: LISINOPRIL 20 MG TABLET PO SCH (09:00)
[2021-05-10] MEDS ORDERED: hydroCHLOROthiazide 12.5 MG CAPSULE PO SCH (09:00)
--- NOTE | 2021-05-10 10:14 | PDOC2 ---
CARDIAC CONSULT DATE OF CONSULT Date of Consult DATE: 05/10/21 TIME: 10:03 REASON FOR CONSULT Reason for Consult: Chest pain REFERRING PHYSICIAN Referring Physician: Marie SOURCE Source: Chart review, Patient HISTORY OF PRESENT ILLNESS HISTORY OF PRESENT ILLNESS This is a pleasant 40 yo male admitted for complains of chest pain and dizziness. Reports that he had family over and was laughing hard and then got dizzy for about 6 sec. Also having dull achy mid chest pain lasting about 30 minutes then faded away. No associated SOA, palpitations, diaphoresis. No nausea or vomiting. He has CAD with recent LAD stent and has been compliant with his medications. PAST MEDICAL HISTORY Cardiovascular: CAD, HTN, Hyperlipidemia Pulmonary: Asthma CENTRAL NERVOUS SYSTEM: Other (No pertinent history) GI: GERD Heme/Onc: No pertinent hx Hepatobiliary: No pertinent hx Psych: No pertinent hx Musculoskeletal: Other (obese) Rheumatologic: No pertinent hx Infectious disease: No pertinent hx ENT: No pertinent hx Renal/: No pertinent hx Endocrine: Diabetes Dermatology: No pertinent hx PAST SURGICAL HISTORY Past Surgical History: Appendectomy, Cholecystectomy, Other (PCI) FAMILY HISTORY Family History: Coronary Artery Disease (father) SOCIAL HISTORY Smoke: Quit ALCOHOL: none Drugs: None Lives: with Family CURRENT MEDICATIONS CURRENT MEDICATIONS Current Medications Medications (Trade) Dose Ordered Sig/Danita Route PRN Reason Start Time Stop Time Status Last Admin Dose Admin Aspirin (Aspirin Chewable) 324 mg 1X ONCE PO 05/09/21 18:00 05/09/21 18:01 DC 05/09/21 18:14 Morphine Sulfate (Morphine Sulfate) 5 mg 1X ONCE IV 05/09/21 18:00 05/09/21 18:01 DC 05/09/21 18:14 Aspirin (Ecotrin) 325 mg DAILYWBKFT PO 05/10/21 08:00 05/10/21 09:02 Atorvastatin Calcium (Lipitor) 40 mg QHS PO 05/09/21 21:00 05/09/21 21:49 Clopidogrel Bisulfate (Plavix) 75 mg DAILYWBKFT PO 05/10/21 08:00 05/10/21 09:01 Metoprolol Tartrate (Lopressor) 50 mg BID PO 05/09/21 21:00 05/09/21 21:49 Budesonide (Pulmicort) 0.5 mg RTBID NEB 05/10/21 08:00 05/10/21 07:40 Heparin Sodium (Porcine) (Heparin Sodium) 5,000 unit Q8HRS SQ 05/09/21 22:00 05/10/21 06:29 Albuterol Sulfate (Ventolin Neb Soln) 2.5 mg RTQID NEB 05/10/21 08:00 05/10/21 07:40 ALLERGIES ALLERGIES: Coded Allergies: No Known Drug Allergies (Unverified , 05/05/21) ROS Review of System 14 point ROS evaluated with pertinent positives noted per HPI PHYSICAL EXAM General: Alert, Oriented X3, Cooperative, No acute distress HEENT: Atraumatic, Mucous membr. moist/pink Lungs: Clear to auscultation, Normal air movement Heart: Regular rate (SR), Normal S1, Normal S2, No murmurs Abdomen: Soft, No tenderness Extremities: No cyanosis, No edema Skin: No breakdown, No significant lesion Neuro: Normal speech, Sensation intact Psych/Mental Status: Mental status NL, Mood NL MUSCULOSKELETAL: Full range of motion without pain VITALS/I&O VITALS/I&O: Vital Signs Date Time Temp Pulse Resp B/P (MAP) Pulse Ox O2 Delivery O2 Flow Rate FiO2 05/10/21 07:41 94 Room Air 05/10/21 07:00 97.8 65 18 102/39 (60) 97.8 I & O 05/09/21 05/09/21 05/10/21 14:59 22:59 06:59 Intake Total 300 ml 220 ml Output Total 250 ml 375 ml Balance 50 ml -155 ml LABS Lab: Laboratory Tests Test 05/09/21 18:00 05/09/21 21:30 05/09/21 21:31 05/10/21 00:10 White Blood Count 11.9 x10^3/uL (4.0-11.0) H Red Blood Count 4.85 x10^6/uL (4.30-5.70) Hemoglobin 14.4 g/dL (13.0-17.5) Hematocrit 42.6 % (39.0-53.0) Mean Corpuscular Volume 88 fL (79-100) Mean Corpuscular Hemoglobin 30 pg (25-35) Mean Corpuscular Hemoglobin Concent 34 g/dL (31-37) Red Cell Distribution Width 13.4 % (11.5-14.5) Platelet Count 307 x10^3/uL (140-400) Neutrophils (%) (Auto) 70 % (31-73) Lymphocytes (%) (Auto) 20 % (24-48) L Monocytes (%) (Auto) 7 % (0-9) Eosinophils (%) (Auto) 3 % (0-3) Basophils (%) (Auto) 1 % (0-3) Neutrophils # (Auto) 8.3 x10^3/uL (1.8-7.7) H Lymphocytes # (Auto) 2.3 x10^3/uL (1.0-4.8) Monocytes # (Auto) 0.8 x10^3/uL (0.0-1.1) Eosinophils # (Auto) 0.3 x10^3/uL (0.0-0.7) Basophils # (Auto) 0.1 x10^3/uL (0.0-0.2) Sodium Level 139 mmol/L (136-145) Potassium Level 4.7 mmol/L (3.5-5.1) Chloride Level 102 mmol/L (98-107) Carbon Dioxide Level 29 mmol/L (21-32) Anion Gap 8 (6-14) Blood Urea Nitrogen 21 mg/dL (8-26) Creatinine 1.2 mg/dL (0.7-1.3) Estimated GFR (Cockcroft-Gault) 67.4 Glucose Level 94 mg/dL (70-99) Calcium Level 8.9 mg/dL (8.5-10.1) Troponin I Quantitative < 0.017 ng/mL (0.000-0.055) < 0.017 ng/mL (0.000-0.055) < 0.017 ng/mL (0.000-0.055) Glucose (Fingerstick) 142 mg/dL (70-99) H Test 05/10/21 07:39 Glucose (Fingerstick) 98 mg/dL (70-99) Laboratory Tests 05/09/21 18:00 Laboratory Tests 05/09/21 18:00 HEART CATH HEART CATH <Conclusion> Severe single-vessel coronary disease with a subtotal lesion in the mid LAD. Mild disease in the left circumflex and right coronary artery. Successful drug-eluting stent placement to the LAD lesion with a residual lesion of 0%. Fluoroscopy time of 19.2 minutes. Dose. 90 Gycm2. Contrast. 294 cc. Sedation. 108 minutes. Blood loss 30 cc estimated. DATE: 05/06/21 [id number] ASSESSMENT/PLAN ASSESSMENT/PLAN 1. Atypical CP: trops nml 2. CAD with recent LAD/VICK on 05/06/2021, clinically stable 3. HTN: controlled 4. HLP 5. DM2: per PCP 6. Asymptomatic SB: lowest mid40s Recommendations 1. Stop HCTZ. BP is well controlled. Will decrease lisinopril and metoprolol and encouraged HBPM 2. Continue ASA and plavix. 3. Will review prior TTE not finalized yet. 4. Follow up in 6 weeks. May DC this afternoon KRISTAL MORENO [employer]INT [employer] OPERATOR May 10, 2021 10:14
[2021-05-10] MEDS ORDERED: NITROGLYCERIN SUBLINGUAL 0.4 MG BOTTLE OF 25. SL PRN (10:15)
[2021-05-10 11:00] VITALS: BP 127/54
--- NOTE | 2021-05-10 11:32 | NUR ---
SS following for discharge planning. SS reviewed pt chart and discussed with pt RN. Pt is from home and is currently on room air. Discharge plan is to home when medically ready for discharge. SS will continue to follow for discharge planning.
[2021-05-10] MEDS ORDERED: NITR0.4T24 SL (11:42)
[2021-05-10] MEDS ORDERED: METO50TA6 PO (11:42)
[2021-05-10] MEDS ORDERED: LISI-130 PO (11:42)
--- NOTE | 2021-05-10 11:54 | PDOC3 ---
Discharge Summary Visit Information Date of Admission: May 09, 2021 Date of Discharge: May 10, 2021 Admitting Diagnosis: Chest pain, dizziness Final Diagnosis Problems Medical Problems: (1) Chest pain Status: Acute Brief Hospital Course Allergies Allergies Coded Allergies Type Severity Reaction Last Updated Verified No Known Drug Allergies 05/05/21 No Vital Signs Vital Signs Date Time Temp Pulse Resp B/P (MAP) Pulse Ox O2 Delivery O2 Flow Rate FiO2 05/10/21 11:21 95 Room Air 05/10/21 11:00 98.1 80 18 127/54 (78) 98.1 Lab Results Laboratory Tests Test 05/09/21 18:00 05/09/21 21:30 05/09/21 21:31 05/10/21 00:10 White Blood Count 11.9 x10^3/uL (4.0-11.0) Red Blood Count 4.85 x10^6/uL (4.30-5.70) Hemoglobin 14.4 g/dL (13.0-17.5) Hematocrit 42.6 % (39.0-53.0) Mean Corpuscular Volume 88 fL (79-100) Mean Corpuscular Hemoglobin 30 pg (25-35) Mean Corpuscular Hemoglobin Concent 34 g/dL (31-37) Red Cell Distribution Width 13.4 % (11.5-14.5) Platelet Count 307 x10^3/uL (140-400) Neutrophils (%) (Auto) 70 % (31-73) Lymphocytes (%) (Auto) 20 % (24-48) Monocytes (%) (Auto) 7 % (0-9) Eosinophils (%) (Auto) 3 % (0-3) Basophils (%) (Auto) 1 % (0-3) Neutrophils # (Auto) 8.3 x10^3/uL (1.8-7.7) Lymphocytes # (Auto) 2.3 x10^3/uL (1.0-4.8) Monocytes # (Auto) 0.8 x10^3/uL (0.0-1.1) Eosinophils # (Auto) 0.3 x10^3/uL (0.0-0.7) Basophils # (Auto) 0.1 x10^3/uL (0.0-0.2) Sodium Level 139 mmol/L (136-145) Potassium Level 4.7 mmol/L (3.5-5.1) Chloride Level 102 mmol/L (98-107) Carbon Dioxide Level 29 mmol/L (21-32) Anion Gap 8 (6-14) Blood Urea Nitrogen 21 mg/dL (8-26) Creatinine 1.2 mg/dL (0.7-1.3) Estimated GFR (Cockcroft-Gault) 67.4 Glucose Level 94 mg/dL (70-99) Calcium Level 8.9 mg/dL (8.5-10.1) Troponin I Quantitative < 0.017 ng/mL (0.000-0.055) < 0.017 ng/mL (0.000-0.055) < 0.017 ng/mL (0.000-0.055) Glucose (Fingerstick) 142 mg/dL (70-99) Test 05/10/21 07:39 Glucose (Fingerstick) 98 mg/dL (70-99) Laboratory Tests Test 05/09/21 18:00 05/09/21 21:30 05/09/21 21:31 05/10/21 00:10 White Blood Count 11.9 x10^3/uL (4.0-11.0) Red Blood Count 4.85 x10^6/uL (4.30-5.70) Hemoglobin 14.4 g/dL (13.0-17.5) Hematocrit 42.6 % (39.0-53.0) Mean Corpuscular Volume 88 fL (79-100) Mean Corpuscular Hemoglobin 30 pg (25-35) Mean Corpuscular Hemoglobin Concent 34 g/dL (31-37) Red Cell Distribution Width 13.4 % (11.5-14.5) Platelet Count 307 x10^3/uL (140-400) Neutrophils (%) (Auto) 70 % (31-73) Lymphocytes (%) (Auto) 20 % (24-48) Monocytes (%) (Auto) 7 % (0-9) Eosinophils (%) (Auto) 3 % (0-3) Basophils (%) (Auto) 1 % (0-3) Neutrophils # (Auto) 8.3 x10^3/uL (1.8-7.7) Lymphocytes # (Auto) 2.3 x10^3/uL (1.0-4.8) Monocytes # (Auto) 0.8 x10^3/uL (0.0-1.1) Eosinophils # (Auto) 0.3 x10^3/uL (0.0-0.7) Basophils # (Auto) 0.1 x10^3/uL (0.0-0.2) Sodium Level 139 mmol/L (136-145) Potassium Level 4.7 mmol/L (3.5-5.1) Chloride Level 102 mmol/L (98-107) Carbon Dioxide Level 29 mmol/L (21-32) Anion Gap 8 (6-14) Blood Urea Nitrogen 21 mg/dL (8-26) Creatinine 1.2 mg/dL (0.7-1.3) Estimated GFR (Cockcroft-Gault) 67.4 Glucose Level 94 mg/dL (70-99) Calcium Level 8.9 mg/dL (8.5-10.1) Troponin I Quantitative < 0.017 ng/mL (0.000-0.055) < 0.017 ng/mL (0.000-0.055) < 0.017 ng/mL (0.000-0.055) Glucose (Fingerstick) 142 mg/dL (70-99) Test 05/10/21 07:39 Glucose (Fingerstick) 98 mg/dL (70-99) Brief Hospital Course Mr Jeter is a 40 yo male w/ PMHx HTN, HLD and recent CAD with LAD stenting coming to ED c/o chest pain and dizziness. During laughter got dizzy for about 6 sec. Also having dull achy mid chest pain lasting about 30 minutes then faded away. No associated SOA, palpitations, diaphoresis. No nausea or vomiting. Has been compliant with his medications. On 05/06/2021 with cardiac [employer] that still subtotal occlusion of mid LAD which was successfully repaired with drug-eluting stent placement. EKG unchanged. Chest radiograph with no acute findings Labs with WBC 11.9, Hb 14.4, platelets 307, NA 139, K4.7, BUN 21, CR 1.2, glucose 94, troponin 0. BP 102/39. Admitted for further observation No telemetry events. Cardiology consulted. Pain resolved with nitroglycerin and BP improved with metoprolol and lisinopril reduction. Problem list: A/P: Chest pain - likely angina, negative troponins. Will give NTG, cont asa, plavix. Cardiology consulted. Dizziness -likely symptomatic hypotension. Will reduce lisinopril and metoprolol dosing to 20 mg and 25 mg respectively. Stop HCTZ. CAD - 05/06/2021 VICK to LAD for subtotal occlusion, 25% occlusive disease in left circumflex noted. Dyspnea with acute on chronic probable diastolic CHF and AE asthma Hypertension - reduce meds Hyperlipidemia - statin Diabetes, II - sliding scale, home meds Obesity Probable FELICIANO - needs outpatient sleep study 75 minutes spent on same day admit and d/c Discharge Information Condition at Discharge: Improved Follow Up: Weeks (1) Disposition/Orders: D/C to Home Scheduled Aspirin (Aspirin Ec) 325 Mg Tablet.dr, 325 MG PO DAILYWBKFT for heart disease for 30 Days, #30 Prescribed by: YAN MICHEL MD on 05/07/211499 Last Action: Continued on 05/09/212050 by YESSENIA BRAR MD Atorvastatin Calcium (Atorvastatin Calcium) 40 Mg Tablet, 40 MG PO QHS for cholesterol for 30 Days, #30 Prescribed by: YAN MICHEL MD on 05/07/211499 Last Action: Continued on 05/09/212050 by YESSENIA BRAR MD Budesonide/Formoterol Fumarate (Symbicort 160-4.5 Mcg Inhaler) 10.2 Gm Hfa.aer.ad, 2 PUFF IH BID for asthma, #10.6 Ref 3 (Reported) Entered as Reported by: MILADY PINZON on 05/05/21 1442 Last Action: Converted on 05/09/212050 by YESSENIA BRAR MD Clopidogrel Bisulfate (Clopidogrel) 75 Mg Tablet, 75 MG PO DAILYWBKFT for heart disease for 30 Days, #30 Prescribed by: YAN MICHEL MD on 05/07/211499 Last Action: Continued on 05/09/212050 by YESSENIA BRAR MD Lisinopril (Lisinopril) 40 Mg Tablet, 20 MG PO DAILY for FOR HYPERTENSION for 30 Days, #15 Ref 0 Prescribed by: SHELLEY DE JESUS MD on 05/10/21 1142 Metoprolol Tartrate (Metoprolol Tartrate) 50 Mg Tablet, 25 MG PO BID for heart failure for 30 Days, #30 Prescribed by: SHELLEY DE JESUS MD on 05/10/21 1142 Scheduled PRN Albuterol Sulfate (Proair Hfa Inhaler) 8.5 Gm Hfa.aer.ad, 2 PUFF IH PRN Q4-6HRS PRN for wheezing for 21 Days, #1 Ref 0 (Reported) Entered as Reported by: Kay Kaiser on 05/09/211954 Last Action: New Order on 05/09/211954 by Kay Kaiser Albuterol Sulfate (Proair Hfa Inhaler) 8.5 Gm Hfa.aer.ad, 2 PUFF IH PRN Q4-6HRS PRN for wheezing for 21 Days, #1 Ref 0 (Reported) Entered as Reported by: Kay Kaiser on 05/09/212048 Last Action: New Order on 05/09/212048 by Kay Kaiser Bismuth Subsalicylate (Pepto-Bismol) 262 Mg Tab.chew, 262 MG PO PRN Q6HRS PRN for DIARRHEA, (Reported) Entered as Reported by: Kay Kaiser on 05/09/211956 Last Action: Converted on 05/09/212050 by YESSENIA BRAR MD Nitroglycerin (Nitrostat) 0.4 Mg Tab.subl, 0.4 MG SL PRN Q5MIN PRN for CHEST PAIN for 30 Days, #9 Ref 5 Prescribed by: SHELLEY DE JESUS MD on 05/10/21 1142 Discontinued Medications Hydrochlorothiazide (Hydrochlorothiazide) 12.5 Mg Capsule, 12.5 MG PO DAILY for "Water pill" for 30 Days, #30 Prescribed by: YAN MICHEL MD on 05/07/21 1500 Last Action: Discontinued on 05/10/21 1010 by KRISTAL MORENO Lisinopril (Lisinopril) 40 Mg Tablet, 40 MG PO DAILY for FOR HYPERTENSION, #30 Ref 0 (Reported) Discontinued Reason: Prescription changed Entered as Reported by: MILADY PINZON on 05/05/21 1442 Justicifation of Admission Dx: Justifications for Admission: Justification of Admission Dx: N/A SHELLEY DE JESUS MD May 10, 2021 11:54
--- NOTE | 2021-05-10 14:40 | NUR ---
Discharge Note: FRANCINE SPENCER [address] [place] [address] Discharge instructions and discharge home medications reviewed with Patient and a copy given. All questions have been answered and understanding verbalized. The following instructions and handouts were given: discharge instructions, BP education, CP education. Discontinued lines and drains: Peripheral IV intact. Patient discharged to Home or Self Care with Family Member via [facility] at 1440.
--- NOTE | 2021-05-10 17:55 | PDOC3 ---
[facility]-Discharge Summary Discharge Diagnosis: Discharge Diagnosis: 1. Dyspnea with acute on chronic probable diastolic CHF and AE asthma 2. Chest tightness; trop highest 0.08. EKG with evidence of ischemia, which was not present on EKG 09/07 3. Hypertension; mildly elevated 4. Hyperlipidemia 5. Diabetes, II 6. Obesity, probable FELICIANO Consults: Consults: Cardiology Recommendations Mild diuresis Trend troponin ASA Lipids Will give dose of Lovenox x1 now Echo to assess LV systolic function Will need further evaluation Outpatient sleep study Supportive care Hospital Course: Hospital Course: By day of discharge, pt was clinically stable and ready for discharge. 05/06/2021 No acute events overnight. Patient seen and examined bedside. No concerns from nursing. -1 L urine output since admission. Saturating 94% on room air. Patient's chart, labs, images were reviewed and discussed with RN 40-year-old male who presented emergency department today with shortness of breath over the past week after running out of his diuretic medication. he has had bilateral leg swelling and is more dyspneic when he lays back and is improved when he sits up. He does have a history of asthma and was using his nebulizer last night to try and help with shortness of breath which mildly improved his symptoms. He denies any cough fevers or chills. Disposition: Disposition/Orders: D/C to Home Activity: Activity: Resume previous activity Diet: Diet: Cardiac Medications: Home Meds Active Scripts Nitroglycerin (NITROSTAT) 0.4 Mg Tab.subl, 0.4 MG SL PRN Q5MIN PRN for CHEST PAIN for 30 Days, #9 TAB 5 Refills Prov:SHELLEY DE JESUS MD 05/10/21 Metoprolol Tartrate (METOPROLOL TARTRATE) 50 Mg Tablet, 25 MG PO BID for heart failure for 30 Days, #30 TAB Prov:SHELLEY DE JESUS MD 05/10/21 Lisinopril (LISINOPRIL) 40 Mg Tablet, 20 MG PO DAILY for FOR HYPERTENSION for 30 Days, #15 TAB 0 Refills Prov:SHELLEY DE JESUS MD 05/10/21 Clopidogrel Bisulfate (CLOPIDOGREL) 75 Mg Tablet, 75 MG PO DAILYWBKFT for heart disease for 30 Days, #30 TAB Prov:YAN MICHEL MD 6/19/21 Atorvastatin Calcium (ATORVASTATIN CALCIUM) 40 Mg Tablet, 40 MG PO QHS for cholesterol for 30 Days, #30 TAB Prov:YAN MICHEL MD 05/07/21 Aspirin (ASPIRIN EC) 325 Mg Tablet.dr, 325 MG PO DAILYWBKFT for heart disease for 30 Days, #30 TAB.SR Prov:YAN MICHEL MD 05/07/21 Reported Medications Albuterol Sulfate (PROAIR HFA INHALER) 8.5 Gm Hfa.aer.ad, 2 PUFF IH PRN Q4-6HRS PRN for wheezing for 21 Days, #1 INHALER 0 Refills 05/09/21 Bismuth Subsalicylate (PEPTO-BISMOL) 262 Mg Tab.chew, 262 MG PO PRN Q6HRS PRN for DIARRHEA, TAB.CHEW 05/09/21 Albuterol Sulfate (PROAIR HFA INHALER) 8.5 Gm Hfa.aer.ad, 2 PUFF IH PRN Q4-6HRS PRN for wheezing for 21 Days, #1 INHALER 0 Refills 05/09/21 Budesonide/Formoterol Fumarate (SYMBICORT 160-4.5 MCG INHALER) 10.2 Gm Hfa.aer.ad, 2 PUFF IH BID for asthma, #10.6 GM 3 Refills 05/05/21 Discontinued Reported Medications Lisinopril (LISINOPRIL) 40 Mg Tablet, 40 MG PO DAILY for FOR HYPERTENSION, #30 TAB 0 Refills 05/05/21 Discontinued Scripts Hydrochlorothiazide (Hydrochlorothiazide) 12.5 Mg Capsule, 12.5 MG PO DAILY for "Water pill" for 30 Days, #30 CAP Prov:YAN MICHEL MD 05/07/21 Scheduled Aspirin (Aspirin Ec), 325 MG PO DAILYWBKFT Atorvastatin Calcium (Atorvastatin Calcium), 40 MG PO QHS Budesonide/Formoterol Fumarate (Symbicort 160-4.5 Mcg Inhaler), 2 PUFF IH BID, (Reported) Clopidogrel Bisulfate (Clopidogrel), 75 MG PO DAILYWBKFT Lisinopril (Lisinopril), 20 MG PO DAILY Metoprolol Tartrate (Metoprolol Tartrate), 25 MG PO BID Scheduled PRN Albuterol Sulfate (Proair Hfa Inhaler), 2 PUFF IH PRN Q4-6HRS PRN for wheezing, (Reported) Albuterol Sulfate (Proair Hfa Inhaler), 2 PUFF IH PRN Q4-6HRS PRN for wheezing, (Reported) Bismuth Subsalicylate (Pepto-Bismol), 262 MG PO PRN Q6HRS PRN for DIARRHEA, (Reported) Nitroglycerin (Nitrostat), 0.4 MG SL PRN Q5MIN PRN for CHEST PAIN Discontinued Medications Hydrochlorothiazide (Hydrochlorothiazide), 12.5 MG PO DAILY Lisinopril (Lisinopril), 40 MG PO DAILY, (Reported) Discontinued Reason: Prescription changed Total Time: Total Time: Total time spent was 35 minutes in preparing scripts, discharge planning with SW and RN, and preparing this discharge summary. Patient seen and examined on day of discharge. Justicifation of Admission Dx: Justifications for Admission: Justification of Admission Dx: N/A YAN MICHEL MD May 10, 2021 17:55
[2021-05-10] MEDS ORDERED: METOPROLOL TART IMMED RELEASE 50 MG TABLET. PO SCH (21:00)
[2021-05-11] MEDS ORDERED: LISINOPRIL 20 MG TABLET PO SCH (09:00)
== END 2021-05-10 14:40 | disposition home or self-care (01) ==
LOC: ER 16:07 → 2 NORTH 18:49
PROVIDERS: ADMIT Family Medicine; ATTEND Family Medicine
DX: R07.89 Other chest pain (principal); I10 Essential (primary) hypertension; I25.10 Atherosclerotic heart disease of native coronary artery without angina pectoris; R42 Dizziness and giddiness; E78.5 Hyperlipidemia, unspecified; E11.9 Type 2 diabetes mellitus without complications; E66.9 Obesity, unspecified; R06.00 Dyspnea, unspecified; J45.909 Unspecified asthma, uncomplicated; Z90.49 Acquired absence of other specified parts of digestive tract; Z79.82 Long term (current) use of aspirin; Z79.899 Other long term (current) drug therapy; Z98.890 Other specified postprocedural states; Z79.01 Long term (current) use of anticoagulants; Z68.42 Body mass index [BMI] 45.0-49.9, adult
CPT/HCPCS: 36415; 71046; 80048; 82962; 84484; 85025; 93005; 94640; 94760; 96372; 96374; 99285; G0378; J1644; J2270; J7613; J7626; G0379

== ENCOUNTER 2021-10-24 04:19 | Emergency (ER) | payer OTHER ==
[~2021-10-24] VITALS: Ht 160 cm; Wt 118.2 kg
[~2021-10-24 04:19] MED LIST changes: +BISM262T9 PO; -DOXY100C2 PO; +DOXY100C3 PO; +NITR0.4T24 SL
--- NOTE | 2021-10-24 06:00 | PHYS DOC ---
Past Medical History Past Medical History: Asthma, High Cholesterol, Hypertension Past Surgical History: Appendectomy, Cholecystectomy Smoking Status: Former Smoker Alcohol Use: None Drug Use: None General Adult EDM: Chief Complaint: SHORTNESS OF BREATH HPI: HPI: Patient is a 41 year old male here with report of 5 days of shortness of breath and cough with clear to yellow sputum. He denies hemoptysis. He denies fevers or chills. He denies chest pain. He reports some mild generalized malaise. No nausea, vomiting, no abdominal pain. He reports some cramping in both legs, no lower extremity swelling or calf pain. No syncope. No dyspnea exertion. No dizziness or diaphoresis. He reports that he has no current dyspnea at present. He reports he has been fully vaccinated against COVID-19, with the last vacc ination occurring in May. He denies any known sick contacts. Denies recent travel history. He denies recent hospitalization within the last 90 days. Review of Systems: Review of Systems: Constitutional: Denies fever or chills. [] Eyes: Denies change in visual acuity. [] HENT: Nasal congestion and clear rhinorrhea. Denies sore throat. Respiratory: Cough, dyspnea Cardiovascular: Denies chest pain or edema. [] GI: Denies abdominal pain, nausea, vomiting Musculoskeletal: Denies back pain or joint pain. Reports mild, diffuse lower extremity myalgia. Integument: Denies rash. [] Neurologic: Denies headache, focal weakness or sensory changes. Denies dizziness. Denies syncope. Psychiatric: Denies depression or anxiety. [] Heart Score: C/O Chest Pain: No Risk Factors: Risk Factors: DM, Current or recent (<one month) smoker, HTN, HLP, family history of CAD, obesity. Risk Scores: Score 0 - 3: 2.5% MACE over next 6 weeks - Discharge Home Score 4 - 6: 20.3% MACE over next 6 weeks - Admit for Clinical Observation Score 7 - 10: 72.7% MACE over next 6 weeks - Early Invasive Strategies Allergies: Allergies: Allergies Coded Allergies Type Severity Reaction Last Updated Verified No Known Drug Allergies 05/05/21 No Physical Exam: PE: Constitutional: Well developed, well nourished, no acute distress, non-toxic appearance. [] HENT: Normocephalic, atraumatic Eyes: Sclera are clear, conjunctiva are clear Neck: Normal range of motion, no tenderness, supple, no stridor. [] Cardiovascular:Heart rate regular rhythm, +2 radial and posterior tibial pulses bilaterally Lungs & Thorax: Bilateral breath sounds clear to auscultation, no R/R/W, no stridor, no tachypnea, no distress Abdomen: Abdomen is soft, non-distended, non-tender, normal bowel sounds Skin: Warm, dry, no erythema, no rash. [] Back: No tenderness, no CVA tenderness. [] Extremities: No tenderness, no cyanosis, no clubbing, ROM intact, no edema, no calf tenderness Neurologic: Alert and oriented X 3, normal motor function, normal sensory functi on, no focal deficits noted. [] Psychologic: Affect normal, judgement normal, mood normal. [] EKG: EKG: EKG interpreted at 0730 Rhythm is sinus Rate is 82 bpm [place] is normal Q wave lead III No STEMI Radiology/Procedures: Radiology/Procedures: IMAGING REPORT Signed PATIENT: FRANCINE SPENCER ACCOUNT: [id number] : 1980 LOCATION: ER AGE: 41 SEX: M EXAM STATUS: REG ER ORD. PHYSICIAN: DINA HONEYCUTT DO REASON: cough, dyspnea PROCEDURE: PORTABLE CHEST 1V XR CHEST 1V INDICATION: cough, dyspnea COMPARISON STUDY: None. FINDINGS: Lungs: Normal lung volume. No pulmonary mass or consolidation. The tracheobronchial tree and hilar structures are normal. Pleura: No pleural effusion or pneumothorax. Heart and Mediastinum: The cardiomediastinal silhouette is normal. The great vessels of the thorax are normal. Bones and Soft Tissues: The bones and soft tissues are within normal limits. IMPRESSION: No acute cardiopulmonary process. Electronically signed by: Camila Fitzgerald MD (10/24/2021 8:27 AM) [id number] DICTATED and SIGNED BY: CAMILA FITZGERALD MD DATE: 10/24/21 [id number] 0 Course & Med Decision Making: Course & Med Decision Making Pertinent Labs and Imaging studies reviewed. (See chart for details) The patient has been resting comfortably. He manifests no evidence of hypoxia or respiratory distress. Emergency department work-up is unremarkable for any acute life-threatening process. Based on current clinical presentation, there is no indication for further invasive exams, imaging or admission. He continues to deny any chest pain. Troponin is negative. Chest x-ray is unremarkable for any acute process. I have discussed all the findings, differential diagnosis and plan of care with the patient. He will be discharged home. He is stable at time of discharge. I recommend contacting his PCP for follow-up. Strict return precautions are given, he verbalizes understanding. Sandra Disclaimer: Sandra Disclaimer: This electronic medical record was generated, in whole or in part, using a voice recognition dictation system. Departure Departure Impression: Primary Impression: Cough Additional Impression: Dyspnea Qualified Codes: R06.00 - Dyspnea, unspecified Disposition: HOME / SELF CARE / HOMELESS Condition: STABLE Referrals: UNKNOWN PCP NAME (PCP) Patient Instructions: Shortness of Breath, Upper Respiratory Infection, Adult Additional Instructions: Use the medication as needed/as directed. Return for chest pain, coughing up blood, temperature 100.4 or higher, wheezing, vomiting, dehydration, weakness or any other concerns. Your current ER work-up is unremarkable for any acute or life-threatening process. No evidence of infection or pneumonia. There is no indication for antibiotics. Please contact your primary care physician for follow-up. 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 Scripts Benzonatate (BENZONATATE) 200 Mg Capsule 1 CAP PO PRN TID PRN for cough, #20 CAP 0 Refills Prov: DINA HONEYCUTT DO 10/24/21 DINA HONEYCUTT DO Oct 24, 2021 06:00
[2021-10-24 07:11] LABS: BASO % 1 % (0-3); EOS # 0.2 x10^3/uL (0.0-0.7); EOS % 3 % (0-3); HEMATOCRIT 39.5 % (39.0-53.0); HEMOGLOBIN 13.1 g/dL (13.0-17.5); LYMPH # 1.7 x10^3/uL (1.0-4.8); LYMPH % 24 % (24-48); MEAN CORPUSCULAR HEMOGLOBIN 30 pg (25-35); MEAN CORPUSCULAR HGB CONC 33 g/dL (31-37); MEAN CORPUSCULAR VOLUME 89 fL (79-100); MONO # 0.8 x10^3/uL (0.0-1.1); MONO % 11 % (0-9); NEUT # 4.4 x10^3/uL (1.8-7.7); NEUT % 62 % (31-73); PLATELET COUNT 311 x10^3/uL (140-400); RED BLOOD COUNT 4.43 x10^6/uL (4.30-5.70); RED CELL DISTRIBUTION WIDTH 13.4 % (11.5-14.5); WHITE BLOOD COUNT 7.1 x10^3/uL (4.0-11.0)
[2021-10-24 07:16] LABS: CALCIUM 8.4 mg/dL (8.5-10.1); GFR 82.8; POTASSIUM 4.5 mmol/L (3.5-5.1)
[2021-10-24 07:22] LABS: INFLUENZA A PATIENT NEGATIVE (NEGATIVE); INFLUENZA B PATIENT NEGATIVE (NEGATIVE)
[2021-10-24 07:26] LABS: ALBUMIN 3.4 g/dL (3.4-5.0); ALBUMIN/GLOBULIN RATIO 1.1 (1.0-1.7); MAGNESIUM 2.1 mg/dL (1.8-2.4); TOTAL BILIRUBIN 0.1 mg/dL (0.2-1.0); TOTAL PROTEIN 6.5 g/dL (6.4-8.2)
[2021-10-24] MEDS ORDERED: BENZ200C47 PO (07:47)
--- NOTE | 2021-10-24 08:29 | RAD ---
XR CHEST 1V INDICATION: cough, dyspnea COMPARISON STUDY: None. FINDINGS: Lungs: Normal lung volume. No pulmonary mass or consolidation. The tracheobronchial tree and hilar st ructures are normal. Pleura: No pleural effusion or pneumothorax. Heart and Mediastinum: The cardiomediastinal silhouette is normal. The great vessels of the thorax ar e normal. Bones and Soft Tissues: The bones and soft tissues are within normal limits. IMPRESSION: No acute cardiopulmonary process. Electronically signed by: Deejay Sanchez MD (10/24/2021 8:27 AM) [id number]
[2021-10-24 08:50] VITALS: BP 131/59
--- NOTE | 2021-10-25 16:14 | EKG ---
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
== END 2021-10-24 09:04 | disposition home or self-care (01) ==
LOC: ER 04:19
DX: R05.9 Cough, unspecified (principal); Z20.822 Contact with and (suspected) exposure to COVID-19; R06.02 Shortness of breath; R53.81 Other malaise; J45.909 Unspecified asthma, uncomplicated; E78.00 Pure hypercholesterolemia, unspecified; I10 Essential (primary) hypertension; Z87.891 Personal history of nicotine dependence
CPT/HCPCS: 71045; 80053; 82550; 83735; 83880; 84484; 85025; 85379; 87426; 87804; 93005; 99284; U0003